=== PATIENT | male | born 1950 | race Caucasian/White ===

== ENCOUNTER → 2016-07-26 | Outpatient (CLI) | payer OTHER ==
[~2016-07-26] MED LIST: ACET-1311 PO; BISA10SU38 PR; CLIN300C2 PO; CRG3125 PO; FLV1 PO; LIDO5DIS10 TOP; MAGN400T6 PO; NRN100 PO; NUTR-1048 PO; OXY/15 PO; OXYC1TAB3 PO; PANT40TA PO; PROTEIN POWDER PO; SIMV20TA2 PO; WARF10TA PO; ZNTT/150 PO
== END | disposition home or self-care (01) ==
LOC: C.LABSPEC 15:42
PROVIDERS: ATTEND Internal Medicine
DX: M79.675 Pain in left toe(s) (principal)

== ENCOUNTER → 2017-02-21 | Outpatient (CLI) | payer OTHER ==
[2017-02-21 10:12] LABS: PROTHROMBIN TIME (PATIENT) 10.8 SECONDS (9.0-12.0)
== END | disposition home or self-care (01) ==
LOC: C.LABSPEC 09:24
PROVIDERS: ATTEND Internal Medicine
DX: I48.91 Unspecified atrial fibrillation (principal)

== ENCOUNTER → 2017-02-28 | Outpatient (CLI) | payer OTHER ==
[2017-02-28 09:14] LABS: INR 1.4 (0.9-1.1)
--- NOTE | 2017-03-09 09:24 | CODING QUERY NO DIAGNOSIS ---
TREATMENT RENDERED WITHOUT A DIAGNOSIS : 54 To promote full compliance with coding requirements relating to patient care, physician participation is requested in all cases of kiln door repairer uncertainty. Please assist us with providing a diagnosis/symptom for the test(s) below: A diagnosis/symptom was not documented on your Order. A valid diagnosis/symptom is required to bill all insurances. Please remember that we are unable to code a diagnosis of rule out, probable, possible, questionable, or suspected. Tests that require a diagnosis: DOS: 02/28/17 * PROTHROMBIN TIME PRO DIAGNOSIS: Provider Signature: Date: Thank you Neena Lacey Health Information Management Once completed, please kindly fax back to [phone] For questions please call [phone]
== END | disposition home or self-care (01) ==
LOC: C.LABSPEC 08:46
PROVIDERS: ATTEND Internal Medicine
DX: I48.91 Unspecified atrial fibrillation (principal)

== ENCOUNTER → 2017-03-02 | Outpatient (CLI) | payer OTHER ==
[~2017-03-02] MED LIST changes: +ACET-1693 PO; +CALC667C4 PO; +CARV3.122 PO; +CMD25 PO; +CMD75 PO; +FERR1TAB13 PO; +LEVO-17 PO; +LIDO1CRE16 TOP; +MENTOIN TD; +MRLP17 PO; +OXYC-90 PO; -OXYC1TAB3 PO; +RANI150T85 PO; +SENN-61 PO; +SKIN120C TD; -ZNTT/150 PO; +[UNRECOGNIZED DRUG - OTHER] PO
[2017-03-02 08:56] LABS: INR 1.4 (0.9-1.1)
== END | disposition home or self-care (01) ==
LOC: C.LABSPEC 08:29
PROVIDERS: ATTEND Internal Medicine
DX: I48.91 Unspecified atrial fibrillation (principal); I49.5 Sick sinus syndrome

== ENCOUNTER → 2017-03-06 | Outpatient (CLI) | payer OTHER ==
[2017-03-06 10:12] LABS: INR 1.6 (0.9-1.1)
== END | disposition home or self-care (01) ==
LOC: C.LABSPEC 09:08
PROVIDERS: ATTEND Nurse Practitioner Adult Health
DX: I48.91 Unspecified atrial fibrillation (principal)

== ENCOUNTER → 2017-03-08 | Outpatient (CLI) | payer OTHER ==
[2017-03-08 08:42] LABS: INR 1.9 (0.9-1.1)
== END | disposition home or self-care (01) ==
LOC: C.LABSPEC 07:44
PROVIDERS: ATTEND Nurse Practitioner Adult Health
DX: Z51.81 Encounter for therapeutic drug level monitoring (principal); Z79.01 Long term (current) use of anticoagulants

== ENCOUNTER → 2017-03-14 | Outpatient (CLI) | payer OTHER ==
[~2017-03-14] MED LIST changes: -ACET-1693 PO; -CALC667C4 PO; -CARV3.122 PO; -CMD25 PO; -CMD75 PO; -FERR1TAB13 PO; -LEVO-17 PO; -LIDO1CRE16 TOP; -MENTOIN TD; -MRLP17 PO; -OXYC-90 PO; +OXYC1TAB3 PO; -RANI150T85 PO; -SENN-61 PO; -SKIN120C TD; +ZNTT/150 PO; -[UNRECOGNIZED DRUG - OTHER] PO
[2017-03-14 08:57] LABS: INR 2.2 (0.9-1.1)
--- NOTE | 2017-03-16 09:39 | CODING QUERY NO DIAGNOSIS ---
: 1950 TREATMENT RENDERED WITHOUT A DIAGNOSIS To promote full compliance with coding requirements relating to patient care, physician participation is requested in all cases of customer logistics manager uncertainty. Please assist us with providing a diagnosis/symptom for the test(s) below: A diagnosis/symptom was not documented on your Order. A valid diagnosis/symptom is required to bill all insurances. Please remember that we are unable to code a diagnosis of rule out, probable, possible, questionable, or suspected. Tests that require a diagnosis: DOS: 03/14/17 * PROTHROMBIN TIME PROFILE DIAGNOSIS: Provider Signature: Date: Thank you Cora Quick Health Information Management Once completed, please kindly fax back to [phone] For questions please call [phone]
== END | disposition home or self-care (01) ==
LOC: C.LABSPEC 08:11
PROVIDERS: ATTEND Nurse Practitioner Adult Health
DX: I48.2 Chronic atrial fibrillation (principal)

== ENCOUNTER → 2017-03-21 | Outpatient (CLI) | payer OTHER ==
[2017-03-21 09:53] LABS: INR 2.3 (0.9-1.1)
== END | disposition home or self-care (01) ==
LOC: C.LABSPEC 08:12
PROVIDERS: ATTEND Internal Medicine
DX: I48.91 Unspecified atrial fibrillation (principal)

== ENCOUNTER → 2017-03-28 | Outpatient (CLI) | payer OTHER ==
[2017-03-28 10:25] LABS: INR 2.1 (0.9-1.1)
--- NOTE | 2017-03-29 14:26 | CODING QUERY NO DIAGNOSIS ---
: 1950 TREATMENT RENDERED WITHOUT A DIAGNOSIS To promote full compliance with coding requirements relating to patient care, physician participation is requested in all cases of hris manager uncertainty. Please assist us with providing a diagnosis/symptom for the test(s) below: A diagnosis/symptom was not documented on your Order. A valid diagnosis/symptom is required to bill all insurances. Please remember that we are unable to code a diagnosis of rule out, probable, possible, questionable, or suspected. Tests that require a diagnosis: DOS: 03/28/17 * PROTHROMBIN TIME PROFILE DIAGNOSIS: Provider Signature: Date: Thank you Cora Quick Health Information Management Once completed, please kindly fax back to [phone] For questions please call [phone]
== END | disposition home or self-care (01) ==
LOC: C.LABSPEC 09:00
PROVIDERS: ATTEND Internal Medicine
DX: I48.2 Chronic atrial fibrillation (principal)

== ENCOUNTER → 2017-04-11 | Outpatient (CLI) | payer OTHER ==
[~2017-04-11] MED LIST changes: +ACET-1693 PO; +CALC667C4 PO; +CARV3.122 PO; +CMD25 PO; +CMD75 PO; +FERR1TAB13 PO; +LEVO-17 PO; +LIDO1CRE16 TOP; +MENTOIN TD; +RANI150T85 PO; +SKIN120C TD; -ZNTT/150 PO; +[UNRECOGNIZED DRUG - OTHER] PO
[2017-04-11 08:50] LABS: INR 2.5 (0.9-1.1)
--- NOTE | 2017-04-19 15:24 | CODING QUERY NO DIAGNOSIS ---
: 1950 Valid Physician Order Needed A valid physician order must be submitted in order to properly bill for the service(s) provided, including date of service(s), valid diagnosis, and physician signature. If these tests are done on a recurring basis the original physician order must be submitted in order to code and bill for the service(s) provided. Please fax us the original, signed physician order so that we may expedite billing to [phone] DOS 04/11/2017 * Prothrombin Time DX: 427.31, I48.91 (No physician signature on lab services requisition) Thank you Simi Cleary [employer] Information Management
== END ==
LOC: C.LABSPEC 08:04
PROVIDERS: ATTEND Nurse Practitioner Adult Health
DX: I48.91 Unspecified atrial fibrillation (principal)

== ENCOUNTER → 2017-04-18 | Outpatient (CLI) | payer OTHER ==
[~2017-04-18] MED LIST changes: -ACET-1693 PO; -CALC667C4 PO; -CARV3.122 PO; -CMD25 PO; -CMD75 PO; -FERR1TAB13 PO; -LEVO-17 PO; -LIDO1CRE16 TOP; -MENTOIN TD; -SKIN120C TD; -[UNRECOGNIZED DRUG - OTHER] PO
[2017-04-18 10:18] LABS: INR 1.9 (0.9-1.1)
== END | disposition home or self-care (01) ==
LOC: C.LABSPEC 09:54
PROVIDERS: ATTEND Nurse Practitioner Adult Health
DX: Z51.81 Encounter for therapeutic drug level monitoring (principal); Z79.01 Long term (current) use of anticoagulants; I48.91 Unspecified atrial fibrillation

== ENCOUNTER → 2017-05-09 | Outpatient (CLI) | payer OTHER ==
[~2017-05-09] MED LIST changes: +ACET-1693 PO; +CALC667C4 PO; +CARV3.122 PO; +CMD25 PO; +CMD75 PO; +FERR1TAB13 PO; +LEVO-17 PO; +LIDO1CRE16 TOP; +MENTOIN TD; +MRLP17 PO; +SENN-61 PO; +SKIN120C TD; +[UNRECOGNIZED DRUG - OTHER] PO
[2017-05-09 09:06] LABS: INR 2.5 (0.9-1.1)
== END | disposition home or self-care (01) ==
LOC: C.LABSPEC 08:32
PROVIDERS: ATTEND Internal Medicine
DX: I48.91 Unspecified atrial fibrillation (principal)

== ENCOUNTER 2017-05-10 05:06 | Inpatient (IN) | payer OTHER ==
[~2017-05-10] VITALS: Ht 185.4 cm; Wt 140.2 kg
[~2017-05-10 05:06] MED LIST changes: -ACET-1693 PO; -CALC667C4 PO; -CARV3.122 PO; -CMD25 PO; -CMD75 PO; -FERR1TAB13 PO; -LEVO-17 PO; -LIDO1CRE16 TOP; -MENTOIN TD; -MRLP17 PO; -SENN-61 PO; -SKIN120C TD; -[UNRECOGNIZED DRUG - OTHER] PO
[2017-05-10] MEDS ORDERED: CMD75 PO (05:20)
[2017-05-10] MEDS ORDERED: CMD25 PO (05:24)
[2017-05-10] MEDS ORDERED: CARV3.122 PO ×2 (05:40→05:44)
[2017-05-10 05:42] LABS: BASO % 0.2 %; BASO ABS # 0.01 K/uL (0-0.2); EOS % 3.4 %; EOS ABS # 0.19 K/uL (0-0.5); HEMATOCRIT 39.6 % (42-52); HEMOGLOBIN 13.1 g/dL (14.0-18.0); IG# 0.01 K/uL (0.00-0.02); LYMPH % 14.9 %; LYMPH ABS # 0.84 K/uL (1.2-3.4); MEAN CELL VOLUME 90.2 fL (80-100); MEAN CORPUSCULAR HEMOGLOBIN 29.8 pg (25-34); MEAN CORPUSCULAR HGB CONC 33.1 g/dl (32-36); MEAN PLATELET VOLUME 9.2 fL (7.4-10.4); MONO % 13.8 %; MONO ABS # 0.78 K/uL (0.11-0.59); NEUT % 67.5 %; NEUT ABS # 3.82 K/uL (1.4-6.5); PLATELET COUNT 166 K/uL (130-400); RED CELL DISTRIBUTION WIDTH CV 15.4 % (11.5-14.5); RED CELL DISTRIBUTION WIDTH SD 50.7 fL (36.4-46.3); WHITE BLOOD COUNT 5.65 K/uL (4.8-10.8)
[2017-05-10] MEDS ORDERED: SKIN120C TD (05:50)
[2017-05-10] MEDS ORDERED: MENTOIN TD (05:52)
[2017-05-10 05:53] LABS: INR 2.7 (0.9-1.1); PTT PATIENT 43.6 SECONDS (21.0-31.0)
[2017-05-10] MEDS ORDERED: LIDO1CRE16 TOP (05:53)
[2017-05-10 05:54] LABS: ALBUMIN 3.5 gm/dl (3.4-5.0); CALCIUM 8.9 mg/dl (8.5-10.1); CREATININE 3.99 mg/dl (0.60-1.40); POTASSIUM 2.6 mmol/L (3.5-5.1)
[2017-05-10 05:56] LABS: TOTAL PROTEIN 7.9 gm/dl (6.4-8.2)
[2017-05-10] MEDS ORDERED: CALC667C4 PO (05:57)
[2017-05-10] MEDS ORDERED: LEVO-17 PO (05:59)
[2017-05-10] MEDS ORDERED: POTASSIUM CHLORIDE 10 MEQ TABCR PO STA (06:02)
[2017-05-10] MEDS ORDERED: FERR1TAB13 PO (06:04)
[2017-05-10] MEDS ORDERED: ACET-1693 PO (06:12)
[2017-05-10] MEDS ORDERED: [UNRECOGNIZED DRUG - OTHER] PO (06:15)
[2017-05-10 06:40] LABS: ISTAT CREATININE 4.1 mg/dl (0.6-1.3); ISTAT IONIZED CALCIUM 1.15 mmol/l (1.12-1.32); ISTAT POTASSIUM 2.6 mEq/L (3.3-5.0)
[2017-05-10] MEDS ORDERED: CIPROFLOXACIN 400MG / 200ML D5W IV STA (07:23)
[2017-05-10] MEDS ORDERED: METRONIDAZOLE 500MG / 100ML NSS IV STA (07:23)
--- NOTE | 2017-05-10 07:30 | DIAGNOSTIC IMAGING REPORT ---
ABDOMEN AND PELVIS CT WITHOUT CONTRAST CT DOSE: 3718.40 mGy.cm HISTORY: Lower abdominal pain. TECHNIQUE: Multiaxial CT images of the abdomen and pelvis were performed without contrast. A dose lowering technique was utilized adhering to the principles of ALARA. COMPARISON STUDY: Abdomen and pelvis CT 12/22/2014. FINDINGS: The lung bases are essentially clear. No pneumoperitoneum. No pneumatosis. Mild sclerosis of the bilateral femoral heads. This could represent avascular necrosis. Evidence for prior posterior decompression from L3 through L5. No significant change in the destructive process at the L2-L3 disc space. Slight increase in the 8 mm of retrolisthesis of L2 on L3. This results in moderate to severe central canal narrowing at this level. This is relatively stable dating back to the 07/13/2015 lumbar spine MRI. Cholelithiasis. The unenhanced liver, spleen, adrenal glands, and pancreas are unremarkable. No retroperitoneal lymphadenopathy. Normal bladder. Distended gas and stool-filled colon. This most pronounced at the sigmoid colon which measures 10 cm in diameter. Normal appendix. The small bowel is normal in course and caliber. Focal area of inflammatory change seen within the left anterior abdomen. This is best seen on image 289. A few scattered colonic diverticula. IMPRESSION: 1. Focal area of inflammatory change seen within the left anterior abdomen. This favors an omental infarct or epiploic appendagitis. However, a diverticulitis could also have a similar appearance. 2. Distended gas and stool-filled colon. This favors an ileus. No evidence for bowel obstruction. 3. Cholelithiasis. 4. Chronic destructive change at the L2-L3 disc space level. This favors a chronic discitis/osteomyelitis. Electronically signed by: Mauri Rojas M.D. 05/10/2017 7:28 AM Dictated Date/Time: 05/10/2017 7:18 AM
--- NOTE | 2017-05-10 07:31 | EMERGENCY ROOM VISIT NOTE ---
ED Visit Note First contact with patient: 05:09 I have personally evaluated and examined this patient. I agree with assessment and plan of Tonya De Leon PA-C.
[2017-05-10 07:33] VITALS: O2SAT 90; Ht 185.4 cm; Wt 140.2 kg
[2017-05-10] MEDS ORDERED: ACETAMINOPHEN 325 MG TAB PO PRN (08:45)
--- NOTE | 2017-05-10 08:57 | History and Physical ---
History & Physical Date & Time of Service: May 10, 2017 at 08:52 Chief Complaint: Abd Pain Primary Care Physician: Suresh Cline D.O. History of Present Illness Source: patient This is a 66 year old Male who resides in [facility] on dialysis M/W/F, history of atrial fibrillation on coumadin, history of back surgery with subsequent complications and left leg immobility, ambulates with wheelchair, morbid obesity, who reports bloating x 3 nights and chronic diarrhea. Patient denies recent antibiotic use. Denies vomiting or fever. Patient makes urine and denies urinary symptoms. Reports that he is not really passing gas but is make bowel movements as diarrhea. Also having left sided abdominal tenderness with the bloating sensation x [address] abdomen results concerning for abdominal bowel distention (dilated colon vs diverticulitis). Patient was ordered Ciprofloxacin and Metronidazole in the ED and GI consult pending with admission to hospitalist medicine service. Family History Diabetes mellitus MOTHER FH: lung disease FATHER Social History Smoking Status: Never Smoker Drug Use: none Marital Status: single Housing status: lives alone, intermediate Occupational Status: disabled Immunizations History of Influenza Vaccine: Yes History of Tetanus Vaccine?: Yes History of Pneumococcal: Yes History of Hepatitis B Vaccine: No Allergies Coded Allergies: No Known Allergies (Verified , 11/30/15) Home Medications Scheduled Acetaminophen (Tylenol), 650 MG PO DAILY Calcium Acetate (Phoslo 667 Mg), 2 CAPSULES PO WM Carvedilol (Coreg), 0.5 TAB PO BID 4XWEEKLY Carvedilol (Coreg), 0.5 TAB PO DAILY 3XWEEKLY Clindamycin Hcl (Cleocin), 300 MG PO DAILY Ferrous Sulfate (Kp Ferrous Sulfate), 325 MG PO DAILY Folic Acid (Folic Acid), 1 MG PO QAM Gabapentin (Gabapentin), 200 MG PO BID Levofloxacin (Levaquin), 250 MG PO Q2D Lidocaine-Prilocaine (Lidocaine/Prilocaine), 1 APPLN TOP UD Magnesium Oxide (Mag-Ox), 400 MG PO QAM Menthol-Zinc Oxide (Calmoseptine), 1 APPLN TD TID Oxycodone Hcl (Oxycodone Hcl), 15 MG PO QAM Oxycodone Ir (Roxicodone Ir), 5 MG PO 3XWK Pantoprazole (Protonix), 40 MG PO BID Ranitidine (Zantac), 150 MG PO QPM Simvastatin (Zocor), 20 MG PO QPM Skin Protectants, Misc. (Hydrocerin), 1 APPLN TD DAILY Warfarin Sod (Coumadin), 7.5 MG PO DAILY Warfarin Sod (Coumadin), 2.5 MG PO 3XWK [Antacid With Simethi], Unknown Dose PO UD Scheduled PRN Acetaminophen Tab (Tylenol), 650 MG PO Q4H PRN for Pain or Fever Review of Systems Constitutional: No fever Eyes: No worsening of vision ENT: No hearing loss Respiratory: No cough, No sputum, No wheezing, No shortness of breath, No dyspnea on exertion Cardiovascular: No chest pain Abdomen: + pain, + diarrhea, No vomiting Musculoskeletal: No joint pain Genitourinary - Male: No dysuria Neurologic: + weakness (left leg immobility) Psychiatric: No substance abuse Endocrine: No fatigue Hematologic / Lymphatic: No abnormal bleeding/bruising Integumentary: No rash Physical Exam Vital Signs Date Time Temp Pulse Resp B/P (MAP) Pulse Ox O2 Delivery O2 Flow Rate FiO2 05/10/17 07:44 93 24 155/77 90 Room Air 05/10/17 07:33 90 Room Air 05/10/17 05:55 95 18 128/53 93 Room Air 05/10/17 05:31 99 05/10/17 05:16 93 Room Air 05/10/17 05:16 36.6 93 22 160/88 94 Room Air General Appearance: no apparent distress Head: normocephalic, atraumatic Eyes: normal inspection, EOMI, sclerae normal ENT: normal ENT inspection, hearing grossly normal, pharynx normal Neck: supple, thyroid normal, no JVD, trachea midline Respiratory/Chest: chest non-tender, lungs clear, normal breath sounds, no respiratory distress, no accessory muscle use Cardiovascular: regular rate, rhythm, no edema, no JVD, no murmur Abdomen/GI: normal bowel sounds, + pertinent finding (truncal obesity, distended, abdominal tenderness left of epigastrum, bowel sounds audible) Back: normal inspection, no muscle spasm Extremities/Musculoskelatal: normal inspection, no calf tenderness, no pedal edema, non-tender, + pertinent finding (patient cannot move left leg) Neurologic/Psych: alert, oriented x 3 (patient cannot move left leg), + pertinent finding Skin: normal color, warm/dry, no rash Diagnostics Laboratory Results Results Past 24 Hours Test 05/10/17 05:10 05/10/17 05:20 05/10/17 05:28 Range/Units White Blood Count 5.65 4.8-10.8 K/uL Red Blood Count 4.39 4.7-6.1 M/uL Hemoglobin 13.1 14.0-18.0 g/dL Hematocrit 39.6 42-52 % Mean Corpuscular Volume 90.2 80-100 fL Mean Corpuscular Hemoglobin 29.8 25-34 pg Mean Corpuscular Hemoglobin Concent 33.1 32-36 g/dl Platelet Count 166 130-400 K/uL Mean Platelet Volume 9.2 7.4-10.4 fL Neutrophils (%) (Auto) 67.5 % Lymphocytes (%) (Auto) 14.9 % Monocytes (%) (Auto) 13.8 % Eosinophils (%) (Auto) 3.4 % Basophils (%) (Auto) 0.2 % Neutrophils # (Auto) 3.82 1.4-6.5 K/uL Lymphocytes # (Auto) 0.84 1.2-3.4 K/uL Monocytes # (Auto) 0.78 0.11-0.59 K/uL Eosinophils # (Auto) 0.19 0-0.5 K/uL Basophils # (Auto) 0.01 0-0.2 K/uL RDW Standard Deviation 50.7 36.4-46.3 fL RDW Coefficient of Variation 15.4 11.5-14.5 % Immature Granulocyte % (Auto) 0.2 % Immature Granulocyte # (Auto) 0.01 0.00-0.02 K/uL Prothrombin Time 27.5 9.0-12.0 SECONDS Prothromb Time International Ratio 2.7 0.9-1.1 Activated Partial Thromboplast Time 43.6 21.0-31.0 SECONDS Partial Thromboplastin Ratio 1.7 Sodium Level 136 136-145 mmol/L Potassium Level 2.6 3.5-5.1 mmol/L Chloride Level 98 98-107 mmol/L Carbon Dioxide Level 29 21-32 mmol/L Anion Gap 9.0 18.0 16-25 mmol/L Blood Urea Nitrogen 46 7-18 mg/dl Creatinine 3.99 0.60-1.40 mg/dl Est Creatinine Clear Calc Drug Dose 28.3 ml/min Estimated GFR () 17.2 Estimated GFR (Non- 14.9 BUN/Creatinine Ratio 11.5 10-20 Random Glucose 112 70-99 mg/dl Calcium Level 8.9 8.5-10.1 mg/dl Magnesium Level 2.3 1.8-2.4 mg/dl Total Bilirubin 0.6 0.2-1 mg/dl Direct Bilirubin 0.1 0-0.2 mg/dl Aspartate Amino Transf (AST/SGOT) 13 15-37 U/L Alanine Aminotransferase (ALT/SGPT) 16 12-78 U/L Alkaline Phosphatase 87 45-117 U/L Total Protein 7.9 6.4-8.2 gm/dl Albumin 3.5 3.4-5.0 gm/dl Lipase 250 73-393 U/L Bedside Hemoglobin 14.3 14.0-18.0 g/dl Bedside Hematocrit 42 42-52 % Bedside Sodium 138 135-144 mEq/L Bedside Potassium 2.6 3.3-5.0 mEq/L Bedside Chloride 95 101-112 mEq/L Bedside Total CO2 29 24-31 mEq/l Bedside Blood Urea Nitrogen 43 7-18 mg/dl Bedside Creatinine 4.1 0.6-1.3 mg/dl Bedside Glucose (other) 112 70-99 mg/dl Bedside Ionized Calcium (Karen) 1.15 1.12-1.32 mmol/l Impression Assessment and Plan The lung bases are essentially clear. No pneumoperitoneum. No pneumatosis. Mild sclerosis of the bilateral femoral heads. This could represent avascular necrosis. Evidence for prior posterior decompression from L3 through L5. No significant change in the destructive process at the L2-L3 disc space. Slight increase in the 8 mm of retrolisthesis of L2 on L3. This results in moderate to severe central canal narrowing at this level. This is relatively stable dating back to the 07/13/2015 lumbar spine MRI. Cholelithiasis. The unenhanced liver, spleen, adrenal glands, and pancreas are unremarkable. No retroperitoneal lymphadenopathy. Normal bladder. Distended gas and stool-filled colon. This most pronounced at the sigmoid colon which measures 10 cm in diameter. Normal appendix. The small bowel is normal in course and caliber. Focal area of inflammatory change seen within the left anterior abdomen. This is best seen on image 289. A few scattered colonic diverticula. IMPRESSION: 1. Focal area of inflammatory change seen within the left anterior abdomen. This favors an omental infarct or epiploic appendagitis. However, a diverticulitis could also have a similar appearance. 2. Distended gas and stool-filled colon. This favors an ileus. No evidence for bowel obstruction. 3. Cholelithiasis. 4. Chronic destructive change at the L2-L3 disc space level. This favors a chronic discitis/osteomyelitis. GI consult was requested in the ED for further evaluation as exam and history seem consistent with dilated colon with possible diverticulitis Patient has been ordered IV Ciprofloxacin 400 mg x 1 in the ED and IV Metronidazole 500 mg x 1 in the ED Hospitalist medicine will appreciate further GI recommendations before further antibiotics to be given. Patient reports chronic diarrhea. C.diff test is to be sent. Blood cultures to be collected NPO for now in case GI procedure needed DVT ppx - patient is anticoagulated on warfarin for history of atrial fibrillation, INR is 2.7 on admission, continue Coumadin for now Continue Coumadin and low dose carvedilol for history of atrial fibrillation Chronic destructive change at the L2-L3 disc space level: chronic discitis/ osteomyelitis as per radiology read. patient does report history of spinal surgery in the past but resulting complications led to the hardware removed and subsequently with left leg immobility; check blood cultures Minimize pain medication narcotics to avoid further ileus or dilation of bowels Minimize oral medications for now - hold iron, simvastatin Morbid Obesity with BMI 43 ESRD on dialysis M/W/F through left arm fistula, nephrology consult for dialysis , continue calcium acetate Hypokalemia likely from recent dialysis and diarrhea. admission serum potassium 2.7. will give additional IV potassium. aware that serum potassium will naturally accumulate given ESRD but a serum potassium below 3 is too low. Will recheck potassium levels after supplementations Urination: patient reports urination despite being on dialysis, denies recent urinary symptoms Patient denies history of diabetes but this has been listed as problem list on outpatient records - is not on medications for diabetes, check HbA1c FULL Code Status sister Keely [phone] Advanced Directives Existing Living Will: Yes Existing Power of Consumer Loan Manager: Yes Resuscitation Status VTE Prophylaxis Will order VTE Prophylaxis: Yes
[2017-05-10] MEDS ORDERED: CARVEDILOL 3.125 MG TAB PO SCH (09:00)
[2017-05-10 09:15] VITALS: BP 111/75; PULSE 81; TEMP 36.7; O2SAT 93
[2017-05-10] MEDS ORDERED: PNEUMOCOCCAL ADMINISTRATION CHARGE ONE (10:00)
[2017-05-10] MEDS ORDERED: PNEUMOCOCCAL POLYSACCHARIDES 25 MCG/0.5 ML VIAL/SYR IM. ONE (10:00)
[2017-05-10 10:02] LABS: HEMOGLOBIN A1C 5.8 % (4.5-5.6)
[2017-05-10] MEDS: POTASSIUM CHLR 10 MEQ / WTR 10 MEQ in PREMIXED WATER 100 ML IV SCH ×2 (10:30→12:10)
[2017-05-10] MEDS: CALCIUM ACETATE 667MG GELCAP PO SCH ×3 (10:35→21:16)
[2017-05-10] MEDS: CARVEDILOL 3.125 MG TAB PO SCH ×2 (12:10→21:16)
--- NOTE | 2017-05-10 12:31 | Gastrointestinal Consultation ---
Gastrointestinal Consultation Date of Consultation: May 10, 2017 Attending Physician: Chepe Consulting Physician: Denice Reason for Consultation: abd distention, abd pain, diarrhea History of Present Illness Patient is a 66 year old male w/ history of T2DM, CKD on dialysis MWF, hx of back surgery w/ complicated post operative period now wheelchair bound w/ others listed below who presented to the ED from [facility] for evaluation of abdominal pain and bloating x 3 days. GI was asked to evaluate the pt, pt was seen and evaluated, chart reviewed. Pt notes that he was in his typical state of health up until 3 days ago. He notes that he has chronic bowel issues. Suggesting that he is unable to pass any stool while he is awake as he does not have the urge to but does pass gas. He normally has 1-2 episodes of incontinence (liquidy stools while he is asleep) No black or bloody stools. This has been his "normal" for quite some time. Notes over the past three days has not been passing gas and has been feeling bloating w/ abdominal pain L>R. Pain is intermittent, explained as a dull deep pain, worse with coughing. Unchanged by PO intake. Unchanged by BM. Continues to be incontinent of 1-2 liquid stools at night. No black or bloody stools. Is not passing gas. No UGI symptoms. Is tolerating diet. No nausea, vomiting. Denies fever, chills, CP, SOB. No weight loss, is up [address] ABD/Pelvis 05/10/17: Focal area of inflammatory change seen within the left anterior abdomen. This favors an omental infarct or epiploic appendagitis. However, a diverticulitis could also have a similar appearance. Distended gas and stool-filled colon. This favors an ileus. No evidence for bowel obstruction. Cholelithiasis. Chronic destructive change at the L2-L3 disc space level. This favors a chronic discitis/osteomyelitis. EGD 11/30/15: Normal esophagus. Normal stomach. Normal examined duodenum. No specimens collected Colonoscopy 08/10/10: The entire examined colon is normal. Past Medical/Surgical History Medical Problems: (1) Intractable low back pain Status: Acute (2) Lumbar disc disease Status: Acute (3) Osteomyelitis of lumbar spine Status: Acute Past Medical History: T2DM, dyslipidemia, hx PE, HTN, diastolic HF, Afib, CKD on dialysis MWF, anemia Past Surgical History: appendectomy EGD x 2 Colonoscopy laminectomy and laminotomy Family History Diabetes mellitus MOTHER FH: lung disease FATHER Social History Smoking Status: Never Smoker Alcohol Use: none Drug Use: none Marital Status: single Housing Status: lives alone Occupation Status: disabled Allergies Coded Allergies: No Known Allergies (Verified , 11/30/15) Current Medications Home Meds and Scripts Medications Dose Route/Sig Max Daily Dose Days Date Category Dose Instructions [Antacid With Simethi] Unknown Strength Unknown Dose PO UD 05/10/17 Reported Tylenol (Acetaminophen) 325 Mg Tab 650 Mg PO Q4H PRN 05/10/17 Reported MAX APAP/24HRS = 3GM Kp Ferrous Sulfate (Ferrous Sulfate) 325 Mg Tab 325 Mg PO DAILY 05/10/17 Reported Levaquin (Levofloxacin) 250 Mg Tab 250 Mg PO Q2D 05/10/17 Reported Phoslo 667 Mg (Calcium Acetate) 667 Mg Cap 2 Capsules PO WM 05/10/17 Reported Lidocaine/Prilocaine (Lidocaine-Prilocaine) 1 Cre Cre 1 Appln TOP UD 05/10/17 Reported LIBERAL AMOUNT APPLIED 1 HOUR PRIOR TO DIALYSIS,TOPICALLY OVER DIALYSIS ACCESS. ONCE EVERY SUNDAY/SUNDAY/SUNDAY. Calmoseptine (Menthol-Zinc Oxide) 1 Oin Oin 1 Appln TD TID 05/10/17 Reported Hydrocerin (Skin Protectants, Misc.) 1 Cre Cre 1 Appln TD DAILY 05/10/17 Reported Coreg (Carvedilol) 3.125 Mg Tab 0.5 Tab PO DAILY 3XWEEKLY 05/10/17 Reported TAKE 1/2 TABLET DAILY EVERY SUNDAY/SUNDAY/SUNDAY. Coreg (Carvedilol) 3.125 Mg Tab 0.5 Tab PO BID 4XWEEKLY 05/10/17 Reported TAKE 1/2 TABLET TWICE EVERY SUNDAY/SUNDAY/SUNDAY/ SUNDAY. Coumadin (Warfarin Sod) 2.5 Mg Tab 2.5 Mg PO 3XWK 05/10/17 Reported TAKE WITH 7.5MG EVERY SUNDAY/SUNDAY/SUNDAY = 10MG 3X WEEKLY Coumadin (Warfarin Sod) 7.5 Mg Tab 7.5 Mg PO DAILY 05/10/17 Reported TAKE WITH 2.5MG EVERY SUNDAY/SUNDAY/SUNDAY = 10MG 3 X WEEKLY. Zantac (Ranitidine HCl) 150 Mg Tab 150 Mg PO QPM 11/24/15 Reported Tylenol (Acetaminophen) 325 Mg Tab 650 Mg PO DAILY 09/15/15 Reported MAX APAP/24HRS = 3GMS Gabapentin 100 Mg Cap 200 Mg PO BID 09/15/15 Reported Zocor (Simvastatin) 20 Mg Tab 20 Mg PO QPM 09/15/15 Reported Protonix (Pantoprazole Sodium) 40 Mg Tab 40 Mg PO BID 09/15/15 Reported Roxicodone Ir (Oxycodone HCl) 5 Mg Tab 5 Mg PO 3XWK 09/15/15 Reported DAILY EVERY SUNDAY/SUNDAY/SUNDAY AFTER RETURNING FROM DIALYSIS. Oxycodone Hcl 15 Mg Tab 15 Mg PO QAM 09/15/15 Reported Mag-Ox (Magnesium Oxide) 400 Mg Tab 400 Mg PO QAM 09/15/15 Reported Cleocin (Clindamycin Hcl) 300 Mg Cap 300 Mg PO DAILY 09/15/15 Reported Folic Acid 1 Mg Tab 1 Mg PO QAM 05/12/14 Reported Review of Systems Constitutional: + weakness, No fever, No chills, No sweats, No weight loss ENT: No hearing loss, No trouble swallowing, No pain on swallowing Respiratory: No cough, No shortness of breath Cardiac: + edema (chronic and unchanged), No chest pain Abdomen: + pain, + diarrhea, No nausea, No vomiting, No constipation, No GI bleeding, No dysphagia, No odynophagia Skin: No rash, No itch, No color change, No jaundice Physical Exam Date Time Temp Pulse Resp B/P (MAP) Pulse Ox O2 Delivery O2 Flow Rate FiO2 05/10/17 09:15 36.7 81 17 111/75 (87) 93 Room Air 05/10/17 09:04 91 20 110/73 92 05/10/17 07:44 93 24 155/77 90 Room Air 05/10/17 07:33 90 Room Air 05/10/17 05:55 95 18 128/53 93 Room Air 05/10/17 05:31 99 05/10/17 05:16 93 Room Air 05/10/17 05:16 36.6 93 22 160/88 94 Room Air General Appearance: no apparent distress (pt is resting in bed, is quite talkative during exam) Eyes: PERRL ENT: hearing grossly normal Neck: supple, trachea midline Respiratory/Chest: lungs clear, normal breath sounds, no accessory muscle use Cardiovascular: regular rate, rhythm, no JVD Abdomen: normal bowel sounds, no organomegaly, no pulsatile mass, + distended ( mild distention), + tenderness (generalized tenderness, mild distention) Extremities: + pedal edema (bilateral lower extremity edema w/ venous stasis change) Neurologic/Psych: alert, normal mood/affect, oriented x 3 Skin: normal color, no jaundice, warm/dry, no rash Laboratory Results Last 24 Hours Test 05/10/17 05:20 05/10/17 05:28 White Blood Count 5.65 K/uL Red Blood Count 4.39 M/uL Hemoglobin 13.1 g/dL Hematocrit 39.6 % Mean Corpuscular Volume 90.2 fL Mean Corpuscular Hemoglobin 29.8 pg Mean Corpuscular Hemoglobin Concent 33.1 g/dl Platelet Count 166 K/uL Mean Platelet Volume 9.2 fL Neutrophils (%) (Auto) 67.5 % Lymphocytes (%) (Auto) 14.9 % Monocytes (%) (Auto) 13.8 % Eosinophils (%) (Auto) 3.4 % Basophils (%) (Auto) 0.2 % Neutrophils # (Auto) 3.82 K/uL Lymphocytes # (Auto) 0.84 K/uL Monocytes # (Auto) 0.78 K/uL Eosinophils # (Auto) 0.19 K/uL Basophils # (Auto) 0.01 K/uL RDW Standard Deviation 50.7 fL RDW Coefficient of Variation 15.4 % Immature Granulocyte % (Auto) 0.2 % Immature Granulocyte # (Auto) 0.01 K/uL Prothrombin Time 27.5 SECONDS Prothromb Time International Ratio 2.7 Activated Partial Thromboplast Time 43.6 SECONDS Partial Thromboplastin Ratio 1.7 Sodium Level 136 mmol/L Potassium Level 2.6 mmol/L Chloride Level 98 mmol/L Carbon Dioxide Level 29 mmol/L Anion Gap 9.0 mmol/L 18.0 mmol/L Blood Urea Nitrogen 46 mg/dl Creatinine 3.99 mg/dl Est Creatinine Clear Calc Drug Dose 28.3 ml/min Estimated GFR () 17.2 Estimated GFR (Non- 14.9 BUN/Creatinine Ratio 11.5 Random Glucose 112 mg/dl Estimated Average Glucose 120 mg/dl Hemoglobin A1c 5.8 % Calcium Level 8.9 mg/dl Magnesium Level 2.3 mg/dl Total Bilirubin 0.6 mg/dl Direct Bilirubin 0.1 mg/dl Aspartate Amino Transf (AST/SGOT) 13 U/L Alanine Aminotransferase (ALT/SGPT) 16 U/L Alkaline Phosphatase 87 U/L Total Protein 7.9 gm/dl Albumin 3.5 gm/dl Lipase 250 U/L Bedside Hemoglobin 14.3 g/dl Bedside Hematocrit 42 % Bedside Sodium 138 mEq/L Bedside Potassium 2.6 mEq/L Bedside Chloride 95 mEq/L Bedside Total CO2 29 mEq/l Bedside Blood Urea Nitrogen 43 mg/dl Bedside Creatinine 4.1 mg/dl Bedside Glucose (other) 112 mg/dl Bedside Ionized Calcium (Karen) 1.15 mmol/l Impression Patient is a 66 year old male w/ abd bloating and inability to pass gas (but is passing stool) x 3 days, CT imaging w focal area of inflammatory change seen within the left anterior abdomen w/ reactive ileus. Etiology unclear. Omental infarct vs diverticulitis. Pt has symptomatically improved on IV ABX since admission, noting mild improvement of the pain, no evidence of leukocytosis and VSS. Concerning are the changes at the L2-L3 disc space level new from CT imaging. Plan - Electrolytes per primary team - Continue IV ABX for diverticulitis coverage, could reduce inflammation if ileus is secondary to infectious cause - Clear liquid diet as tolerated - IVF hydration - Limit narcotic analgesia - Daily KUB to monitor ileus - Bowel regimen - GI to follow, please call with any questions or concerns. Will review imaging w/ radiology and attending w/ updates. Attg add: I interviewed and examined pt, reviewed chart and labs. Pt with ESRD , normally stools daily with liquid explosive BM's now admit with abd distention. CT shows left sided colon dilation, stool in rectum, ? tic-itis vs EA. His presentation may be c/w ischemic colitis, related to constipation and dialysis. WIll given enemas to resolve possible fecal impaction, follow abd exams, and consider sigmoidoscopy tomorrow pending clinical course.
[2017-05-10] MEDS: METRONIDAZOLE / NSS 500 MG in PREMIXED NSS 100 ML IV SCH ×2 (14:34→20:10)
[2017-05-10 15:06] VITALS: BP 98/63; PULSE 77; TEMP 36.8; O2SAT 91
[2017-05-10 15:30] VITALS: O2SAT 91
[2017-05-10] MEDS: WARFARIN SOD 7.5 MG TAB PO SCH (15:44)
[2017-05-10] MEDS ORDERED: TAP WATER ENEMA PR ONE ×2 (17:30→20:30)
--- NOTE | 2017-05-10 18:47 | Nephrology Consultation ---
Nephrology Consultation Date of Consultation: May 10, 2017. Attending Physician: Dr Mo Requesting Physician: Dr Mo Reason for Consultation: ESRD on MWF HD History of Present Illness 66 year old male w/ ESRD on MWF HD, chronic/severe low back pain/osteomyelitis, on coumadin for PE a/w bloating/abd pain x [address] concerning for omental infarct v diverticulitis. GI following. For conservative mgt at this time; did have explosive bm yesterday evening prior to arrival w/o much relief in GI sx. His last HD was 05/09 and uneventful. Past Medical/Surgical History Medical Problems: (1) Intractable low back pain Status: Acute (2) Lumbar disc disease Status: Acute (3) Osteomyelitis of lumbar spine Status: Acute -ESRD on MWF HD under [facility] at [facility] -a fib on coumadin -PE on coumadin -diastolic HF -DM2 -chronic back pain after surgery, chronic lumbar osteomyelitis / pseudomonas + cxs in past -HL -ambulatory dysfunction/ w-c bound -morbid obesity Family History Diabetes mellitus MOTHER FH: lung disease FATHER Social History Smoking Status: Never Smoker Alcohol Use: none Drug Use: none Marital Status: single Housing Status: lives alone Occupation Status: disabled Allergies Coded Allergies: No Known Allergies (Verified , 11/30/15) Medications Current Inpatient Medications Medications (Trade) Dose Ordered Sig/George Route Start Time Stop Time Status Last Admin Dose Admin Acetaminophen (Tylenol Tab) 650 mg Q4H PRN PO 05/10/17 08:45 06/09/17 08:44 Calcium Acetate (Phoslo Cap) 1,334 mg TID PO 05/10/17 10:00 06/09/17 09:59 05/10/17 10:35 1,334 MG Carvedilol (Coreg Tab) 3.125 mg BID PO 05/10/17 11:00 06/09/17 10:59 05/10/17 12:10 3.125 MG Warfarin Sodium (Coumadin Tab) 7.5 mg SuTuThSa@1600 PO 05/10/17 16:00 06/09/17 15:59 05/10/17 15:44 7.5 MG Warfarin Sodium (Coumadin Tab) 10 mg MoWeFr@1600 PO 05/11/17 16:00 06/10/17 15:59 Metronidazole 500 mg/Prmx 100 ml @ 100 mls/hr Q6H IV 05/10/17 14:00 05/20/17 13:59 05/10/17 14:34 100 MLS/HR Ciprofloxacin/ Dextrose 400 mg/ Prmx 200 ml @ 100 mls/hr Q24H IV 05/11/17 08:00 05/21/17 07:59 Miscellaneous (Tap Water Enema) 1 ea ONE [place] 05/10/17 17:30 06/09/17 17:29 UNV Miscellaneous (Tap Water Enema) 1 ea ONE [place] 05/10/17 20:30 06/09/17 20:29 UNV Bisacodyl (Dulcolax Supp) 10 mg ONE ONCE [place] 05/10/17 21:00 05/10/17 21:01 UNV Bisacodyl (Dulcolax Supp) 10 mg ONE ONCE [place] 05/11/17 06:00 05/11/17 06:01 UNV Home Meds and Scripts Medications Dose Route/Sig Max Daily Dose Days Date Category Dose Instructions [Antacid With Simethi] Unknown Strength Unknown Dose PO UD 05/10/17 Reported Tylenol (Acetaminophen) 325 Mg Tab 650 Mg PO Q4H PRN 05/10/17 Reported MAX APAP/24HRS = 3GM Kp Ferrous Sulfate (Ferrous Sulfate) 325 Mg Tab 325 Mg PO DAILY 05/10/17 Reported Levaquin (Levofloxacin) 250 Mg Tab 250 Mg PO Q2D 05/10/17 Reported Phoslo 667 Mg (Calcium Acetate) 667 Mg Cap 2 Capsules PO WM 05/10/17 Reported Lidocaine/Prilocaine (Lidocaine-Prilocaine) 1 Cre Cre 1 Appln TOP UD 05/10/17 Reported LIBERAL AMOUNT APPLIED 1 HOUR PRIOR TO DIALYSIS,TOPICALLY OVER DIALYSIS ACCESS. ONCE EVERY SUNDAY/SUNDAY/SUNDAY. Calmoseptine (Menthol-Zinc Oxide) 1 Oin Oin 1 Appln TD TID 05/10/17 Reported Hydrocerin (Skin Protectants, Misc.) 1 Cre Cre 1 Appln TD DAILY 05/10/17 Reported Coreg (Carvedilol) 3.125 Mg Tab 0.5 Tab PO DAILY 3XWEEKLY 05/10/17 Reported TAKE 1/2 TABLET DAILY EVERY SUNDAY/SUNDAY/SUNDAY. Coreg (Carvedilol) 3.125 Mg Tab 0.5 Tab PO BID 4XWEEKLY 05/10/17 Reported TAKE 1/2 TABLET TWICE EVERY SUNDAY/SUNDAY/SUNDAY/ SUNDAY. Coumadin (Warfarin Sod) 2.5 Mg Tab 2.5 Mg PO 3XWK 05/10/17 Reported TAKE WITH 7.5MG EVERY SUNDAY/SUNDAY/SUNDAY = 10MG 3X WEEKLY Coumadin (Warfarin Sod) 7.5 Mg Tab 7.5 Mg PO DAILY 05/10/17 Reported TAKE WITH 2.5MG EVERY SUNDAY/SUNDAY/SUNDAY = 10MG 3 X WEEKLY. Zantac (Ranitidine HCl) 150 Mg Tab 150 Mg PO QPM 11/24/15 Reported Tylenol (Acetaminophen) 325 Mg Tab 650 Mg PO DAILY 09/15/15 Reported MAX APAP/24HRS = 3GMS Gabapentin 100 Mg Cap 200 Mg PO BID 09/15/15 Reported Zocor (Simvastatin) 20 Mg Tab 20 Mg PO QPM 09/15/15 Reported Protonix (Pantoprazole Sodium) 40 Mg Tab 40 Mg PO BID 09/15/15 Reported Roxicodone Ir (Oxycodone HCl) 5 Mg Tab 5 Mg PO 3XWK 09/15/15 Reported DAILY EVERY SUNDAY/SUNDAY/SUNDAY AFTER RETURNING FROM DIALYSIS. Oxycodone Hcl 15 Mg Tab 15 Mg PO QAM 09/15/15 Reported Mag-Ox (Magnesium Oxide) 400 Mg Tab 400 Mg PO QAM 09/15/15 Reported Cleocin (Clindamycin Hcl) 300 Mg Cap 300 Mg PO DAILY 09/15/15 Reported Folic Acid 1 Mg Tab 1 Mg PO QAM 05/12/14 Reported Review of Systems Constitutional: No fever, No weakness, No fatigue Eyes: No worsening of vision ENT: No hearing loss Respiratory: No cough, No shortness of breath Cardiac: + edema (L leg), No chest pain Abdomen: + see HPI Musculoskeletal: + joint pain (back), No muscle pain Male : + problem reported (no change in chronic voiding habits) Neuro: + weakness, + balance problems, No memory loss Psych: No depression symptoms, No anxiety Heme: No abnormal bleeding/bruising Endo: No fatigue Skin: No rash Physical Exam Date Time Temp Pulse Resp B/P (MAP) Pulse Ox O2 Delivery O2 Flow Rate FiO2 05/10/17 15:06 36.8 77 22 98/63 (75) 91 Room Air 05/10/17 09:15 36.7 81 17 111/75 (87) 93 Room Air 05/10/17 09:04 91 20 110/73 92 05/10/17 07:44 93 24 155/77 90 Room Air 05/10/17 07:33 90 Room Air 05/10/17 05:55 95 18 128/53 93 Room Air 05/10/17 05:31 99 05/10/17 05:16 93 Room Air 05/10/17 05:16 36.6 93 22 160/88 94 Room Air 24-Hour Column 05/11/17 07:59 Intake Total 214 ml Balance 214 ml General Appearance: WD/WN, no apparent distress, + obese, + pertinent finding ( on RA very chatty) Eyes: EOMI ENT: normal ENT inspection Neck: supple Respiratory/Chest: lungs clear, no respiratory distress, + decreased breath sounds Cardiovascular: regular rate, rhythm, no edema Abdomen: normal bowel sounds, soft, + distended, + tenderness (L side w/o rebound/guarding) Extremities: + slow capillary refill, + pertinent finding (L leg atrophied mm) Neurologic/Psych: alert, normal mood/affect, oriented x 3 Skin: no jaundice, warm/dry, no rash Diagnostics Last 24 Hours Test 05/10/17 05:20 05/10/17 05:28 05/10/17 12:49 White Blood Count 5.65 K/uL Red Blood Count 4.39 M/uL Hemoglobin 13.1 g/dL Hematocrit 39.6 % Mean Corpuscular Volume 90.2 fL Mean Corpuscular Hemoglobin 29.8 pg Mean Corpuscular Hemoglobin Concent 33.1 g/dl Platelet Count 166 K/uL Mean Platelet Volume 9.2 fL Neutrophils (%) (Auto) 67.5 % Lymphocytes (%) (Auto) 14.9 % Monocytes (%) (Auto) 13.8 % Eosinophils (%) (Auto) 3.4 % Basophils (%) (Auto) 0.2 % Neutrophils # (Auto) 3.82 K/uL Lymphocytes # (Auto) 0.84 K/uL Monocytes # (Auto) 0.78 K/uL Eosinophils # (Auto) 0.19 K/uL Basophils # (Auto) 0.01 K/uL RDW Standard Deviation 50.7 fL RDW Coefficient of Variation 15.4 % Immature Granulocyte % (Auto) 0.2 % Immature Granulocyte # (Auto) 0.01 K/uL Prothrombin Time 27.5 SECONDS Prothromb Time International Ratio 2.7 Activated Partial Thromboplast Time 43.6 SECONDS Partial Thromboplastin Ratio 1.7 Sodium Level 136 mmol/L Potassium Level 2.6 mmol/L 4.4 mmol/L Chloride Level 98 mmol/L Carbon Dioxide Level 29 mmol/L Anion Gap 9.0 mmol/L 18.0 mmol/L Blood Urea Nitrogen 46 mg/dl Creatinine 3.99 mg/dl Est Creatinine Clear Calc Drug Dose 28.3 ml/min Estimated GFR () 17.2 Estimated GFR (Non- 14.9 BUN/Creatinine Ratio 11.5 Random Glucose 112 mg/dl Estimated Average Glucose 120 mg/dl Hemoglobin A1c 5.8 % Calcium Level 8.9 mg/dl Magnesium Level 2.3 mg/dl Total Bilirubin 0.6 mg/dl Direct Bilirubin 0.1 mg/dl Aspartate Amino Transf (AST/SGOT) 13 U/L Alanine Aminotransferase (ALT/SGPT) 16 U/L Alkaline Phosphatase 87 U/L Total Protein 7.9 gm/dl Albumin 3.5 gm/dl Lipase 250 U/L Bedside Hemoglobin 14.3 g/dl Bedside Hematocrit 42 % Bedside Sodium 138 mEq/L Bedside Potassium 2.6 mEq/L Bedside Chloride 95 mEq/L Bedside Total CO2 29 mEq/l Bedside Blood Urea Nitrogen 43 mg/dl Bedside Creatinine 4.1 mg/dl Bedside Glucose (other) 112 mg/dl Bedside Ionized Calcium (Karen) 1.15 mmol/l Diagnostic Radiology: CT abd/pelvis today >> Focal area of inflammatory change seen within the left anterior abdomen. This favors an omental infarct or epiploic appendicitis. However, a diverticulitis could also have a similar appearance. Distended gas and stool-filled colon. This favors an ileus. No evidence for bowel obstruction. Cholelithiasis. Chronic destructive change at the L2-L3 disc space level. This favors a chronic discitis/osteomyelitis. Assessment & Plan 66 y/o M w/ ESRD on MWF HD, intractable lumbar pain w/ chronic osteomyelitis a/ w abdominal bloating w/ abd CT concerning for omental infarct versus diverticulitis; sx improved w/ IV abtx. ESRD Blood pressures/HR, anemia status, electrolytes and volume status acceptable -routine HD tomorrow via [facility] Hypokalemia -rechecked/repleted > recheck in am, sooner if another large bm Abd pain/bloating > diverticulitis v ometal infarct -per primary service and GI Appreciate consult; will follow with you.
[2017-05-10] MEDS ORDERED: BISACODYL 10 MG SUPP PR ONE (21:00)
[2017-05-10] MEDS ORDERED: CIPROFLOXACIN / D5W 400 MG in PREMIXED IN D5W 200 ML IV SCH (21:00)
--- NOTE | 2017-05-10 21:30 | EMERGENCY ROOM VISIT NOTE ---
History First contact with patient: 05:09 Chief Complaint: ABDOMINAL PAIN Stated Complaint: ABD PAIN Nursing Triage Summary: PT presents with abd distension and diarrhea started today. PT abd very distended and hard, abd also very tender in lower quadrants. PT had diarrheal stool today, per staff amount was a lot more than normal for PT. PT has no cough or congestion, PT denies fever/chills, PT has no nauesa or vomiting. HX of kidney failure, PT is on dialysis. History of Present Illness The patient is a 66 year old male who presents to the Emergency Room with complaints of lower abdominal discomfort for the past few hours described as bloating, ranging in severity 1 out of 10. Palpation makes it worse nothing makes it better. It does not radiate. Colonoscopy in 2012 was normal. No history of diverticulitis or diverticulosis. No recent antibiotics. Patient is on dialysis and receives dialysis Sunday. He has a fistula in the left antecubital region. Dr. 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 Patient denies chest pain, dyspnea, fever, chills, nausea, vomiting, flank pain, urinary problems. He still makes a little bit a urine. He was eating and drinking normally yesterday. He resides at [facility]. He states he has left leg weakness from a back surgery. Patient states had an episode of loose stool tonight. No blood or black in it. He has had prior abdominal surgeries. No history of bowel obstructions in the past. Review of Systems An 10 system review of systems was completed with positives and pertinent negatives listed in the HPI. 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 (9) Degenerative disc disease, lumbar (10) Depression (11) Diarrhea (12) Dyslipidemia (13) History of adenomatous polyp of colon (14) History of diabetes mellitus (15) History of DVT of lower extremity (16) History of pulmonary embolism (17) Nocturnal hypoxemia (18) Obesity, morbid, BMI 40.0-49.9 (19) Orthostasis (20) Osteoarthritis (21) Spinal stenosis of lumbar region (22) Syncope Surgical Problems: (1) Status post appendectomy (2) Status post colonoscopy (3) Status post lumbar surgery Family History Diabetes mellitus MOTHER FH: lung disease FATHER Social History Smoking Status: Never Smoker Alcohol Use: none Drug Use: none Marital Status: single Housing Status: lives alone Occupation Status: disabled Current/Historical Medications Scheduled Acetaminophen (Tylenol), 650 MG PO DAILY Calcium Acetate (Phoslo 667 Mg), 2 CAPSULES PO WM Carvedilol (Coreg), 0.5 TAB PO BID 4XWEEKLY Carvedilol (Coreg), 0.5 TAB PO DAILY 3XWEEKLY Clindamycin Hcl (Cleocin), 300 MG PO DAILY Ferrous Sulfate (Kp Ferrous Sulfate), 325 MG PO DAILY Folic Acid (Folic Acid), 1 MG PO QAM Gabapentin (Gabapentin), 200 MG PO BID Levofloxacin (Levaquin), 250 MG PO Q2D Lidocaine-Prilocaine (Lidocaine/Prilocaine), 1 APPLN TOP UD Magnesium Oxide (Mag-Ox), 400 MG PO QAM Menthol-Zinc Oxide (Calmoseptine), 1 APPLN TD TID Oxycodone Hcl (Oxycodone Hcl), 15 MG PO QAM Oxycodone Ir (Roxicodone Ir), 5 MG PO 3XWK Pantoprazole (Protonix), 40 MG PO BID Ranitidine (Zantac), 150 MG PO QPM Simvastatin (Zocor), 20 MG PO QPM Skin Protectants, Misc. (Hydrocerin), 1 APPLN TD DAILY Warfarin Sod (Coumadin), 7.5 MG PO DAILY Warfarin Sod (Coumadin), 2.5 MG PO 3XWK [Antacid With Simethi], Unknown Dose PO UD Scheduled PRN Acetaminophen Tab (Tylenol), 650 MG PO Q4H PRN for Pain or Fever Physical Exam Vital Signs Date Time Temp Pulse Resp B/P (MAP) Pulse Ox O2 Delivery O2 Flow Rate FiO2 05/10/17 09:15 36.7 81 17 111/75 (87) 93 Room Air 05/10/17 09:04 91 20 110/73 92 05/10/17 07:44 93 24 155/77 90 Room Air 05/10/17 07:33 90 Room Air 05/10/17 05:55 95 18 128/53 93 Room Air 05/10/17 05:31 99 05/10/17 05:16 93 Room Air 05/10/17 05:16 36.6 93 22 160/88 94 Room Air Physical Exam VITALS: Vitals are noted on the nurse's note and reviewed by myself. Vital signs hypertensive GENERAL: Pleasant male, in no acute distress, nondiaphoretic, well-developed well-nourished. SKIN: The skin was without rashes, erythema or bruising. There is no tenting of the skin. Capillary reflex less than 2 seconds. HEAD: Normocephalic atraumatic. EARS: External auditory canals clear, tympanic membranes pearly mejia without erythema or effusion bilaterally. EYES: Pupils equal round and reactive to light and accommodation. Conjunctivae without injection, sclerae without icterus. Extraocular movements intact. NOSE: Patent, turbinates without inflammation or discharge. No sinus tenderness. MOUTH: Mucous membranes moist. Pharynx without erythema or exudate. Uvula midline. Airway patent. Tongue does not deviate. NECK: Supple without nuchal rigidity. No lymphadenopathy. No thyromegaly. Cervical spine is nontender. No JVD. HEART: Irregularly irregular with known history of A. fib on anticoagulation LUNGS: Clear to auscultation bilaterally without wheezes, rales or rhonchi. No retractions or accessory muscle use. ABDOMEN: Positive bowel sounds x 4. Normal tympanic percussion. Soft, protuberant, obese, tender to palpation lower abdomen,, without masses or organomegaly. Bobby sign negative. No guarding or rebound tenderness. No CVA tenderness MUSCULOSKELETAL: No muscle atrophy, erythema, noted. +1 pitting edema up to mid tib-fib bilaterally. Chronic venous stasis unchanged per patient NEURO: Patient was alert and oriented to person place and time. Normal sensation to light and sharp touch. No focal neurological deficits. Medical Decision & Procedures Laboratory Results 05/10/17 05:20 Red Blood Count 4.39, Mean Corpuscular Volume 90.2, Mean Corpuscular Hemoglobin 29.8, Mean Corpuscular Hemoglobin Concent 33.1, Mean Platelet Volume 9.2, Neutrophils (%) (Auto) 67.5, Lymphocytes (%) (Auto) 14.9, Monocytes (%) (Auto) 13.8, Eosinophils (%) (Auto) 3.4, Basophils (%) (Auto) 0.2, Neutrophils # (Auto ) 3.82, Lymphocytes # (Auto) 0.84, Monocytes # (Auto) 0.78, Eosinophils # (Auto ) 0.19, Basophils # (Auto) 0.01 05/10/17 05:20 Test 05/10/17 05:20 05/10/17 05:28 White Blood Count 5.65 K/uL (4.8-10.8) Red Blood Count 4.39 M/uL (4.7-6.1) Hemoglobin 13.1 g/dL (14.0-18.0) Hematocrit 39.6 % (42-52) Mean Corpuscular Volume 90.2 fL (80-100) Mean Corpuscular Hemoglobin 29.8 pg (25-34) Mean Corpuscular Hemoglobin Concent 33.1 g/dl (32-36) Platelet Count 166 K/uL (130-400) Mean Platelet Volume 9.2 fL (7.4-10.4) Neutrophils (%) (Auto) 67.5 % Lymphocytes (%) (Auto) 14.9 % Monocytes (%) (Auto) 13.8 % Eosinophils (%) (Auto) 3.4 % Basophils (%) (Auto) 0.2 % Neutrophils # (Auto) 3.82 K/uL (1.4-6.5) Lymphocytes # (Auto) 0.84 K/uL (1.2-3.4) Monocytes # (Auto) 0.78 K/uL (0.11-0.59) Eosinophils # (Auto) 0.19 K/uL (0-0.5) Basophils # (Auto) 0.01 K/uL (0-0.2) RDW Standard Deviation 50.7 fL (36.4-46.3) RDW Coefficient of Variation 15.4 % (11.5-14.5) Immature Granulocyte % (Auto) 0.2 % Immature Granulocyte # (Auto) 0.01 K/uL (0.00-0.02) Prothrombin Time 27.5 SECONDS (9.0-12.0) Prothromb Time International Ratio 2.7 (0.9-1.1) Activated Partial Thromboplast Time 43.6 SECONDS (21.0-31.0) Partial Thromboplastin Ratio 1.7 Est Creatinine Clear Calc Drug Dose 28.3 ml/min Estimated GFR () 17.2 Estimated GFR (Non- 14.9 BUN/Creatinine Ratio 11.5 (10-20) Estimated Average Glucose 120 mg/dl Hemoglobin A1c 5.8 % (4.5-5.6) Calcium Level 8.9 mg/dl (8.5-10.1) Magnesium Level 2.3 mg/dl (1.8-2.4) Total Bilirubin 0.6 mg/dl (0.2-1) Direct Bilirubin 0.1 mg/dl (0-0.2) Aspartate Amino Transf (AST/SGOT) 13 U/L (15-37) Alanine Aminotransferase (ALT/SGPT) 16 U/L (12-78) Alkaline Phosphatase 87 U/L (45-117) Total Protein 7.9 gm/dl (6.4-8.2) Albumin 3.5 gm/dl (3.4-5.0) Lipase 250 U/L (73-393) Bedside Hemoglobin 14.3 g/dl (14.0-18.0) Bedside Hematocrit 42 % (42-52) Bedside Sodium 138 mEq/L (135-144) Bedside Potassium 2.6 mEq/L (3.3-5.0) Bedside Chloride 95 mEq/L (101-112) Bedside Total CO2 29 mEq/l (24-31) Anion Gap 18.0 mmol/L (16-25) Bedside Blood Urea Nitrogen 43 mg/dl (7-18) Bedside Creatinine 4.1 mg/dl (0.6-1.3) Bedside Glucose (other) 112 mg/dl (70-99) Bedside Ionized Calcium (Karen) 1.15 mmol/l (1.12-1.32) Medications Administered Medications (Trade) Dose Ordered Sig/George Route Start Time Stop Time Status Last Admin Dose Admin Potassium Chloride (Klor-Con M10) 40 meq NOW STAT PO 05/10/17 06:02 05/10/17 06:04 DC 05/10/17 07:43 40 MEQ Ciprofloxacin/ Dextrose (Cipro / D5W) 400 mg NOW STAT IV 05/10/17 07:23 05/10/17 07:25 DC 05/10/17 07:44 400 MG Metronidazole (Flagyl / Nss) 500 mg NOW STAT IV 05/10/17 07:23 05/10/17 07:25 DC 05/10/17 07:44 500 MG Potassium Chloride 10 meq/ Prmx 100 ml @ 100 mls/hr Q1H IV 05/10/17 08:30 05/10/17 10:29 DC 05/10/17 12:10 100 MLS/HR ED Course Prior records/ancillary studies reviewed. Triage Nursing notes reviewed. Additional history obtained from EMS. The patient's history was concerning for abdominal pain. Differential diagnosis: Etiologies such as diverticulitis, PUD, biliary pathology, UTI, pancreatitis, obstruction, mesenteric ischemia, aortic pathology, infections, inflammatory bowel disease, renal colic, as well as others were entertained. Physical examination findings: As above. ER treatment provided: Patient was observed On reassessment the patient felt better. Diagnostics interpreted by me: The labs revealed stable creatinine per chart review. Therapeutic INR, potassium was replaced No leukocytosis, stable anemia per chart review Imaging studies: CT ABDOMEN & PELVIS Without Contrast: Prior from 12/30/14 Mostly gas-distended rectosigmoid. Diffusely distended redundant colon. Colonic diverticulosis. Focal area of wall thickening of the mid descending colon in the left abdomen with mild surrounding fat stranding. DDX includes diverticulitis, although specific inflamed diverticulum not visualized, colitis, malignancy. Small bowel is not dilated. Normal appendix. Large amount of fecal material in the cecum/ascending colon. Gallstones Postoperative changes of the lower lumbar spine. Similar appearance of irregular endplates at L2-3, sclerosis. Although chronic appearance, correlate for discitis osteomyelitis. Retrolisthesis of L2 on 3 has mildly increased. Severe central canal stenosis at this level, and foraminal stenoses. Radiologist: Sharad Shi M.D. Consultation: A consultation was placed with GI, Dr Castrejon and recommends observation/ admission to medicine with consult. I consulted medicine and spoke with Dr. Pinedo and will eval the patient. the case was discussed and diagnostics were reviewed. The patient was evaluated in the ER for further treatment. Exam and history seem consistent with dilated colon with possible diverticulitis. Medicine was consulted for possible admission. antibiotics was given for possible diverticulitis with review with the Hospitalist. Patient has no fevers or no real pain in left lower quadrant on exam. There is no leukocytosis. GI recommends medical admission with consult and a C. difficile test. Patient did not have an acute abdomen on exam. He is well- appearing. He was tolerating fluids. Patient has end-stage renal disease. He receives dialysis Sunday. By the evaluation outlined above emergent etiologies such as PUD, biliary pathology, UTI, pancreatitis, obstruction, mesenteric ischemia, aortic pathology, infections, inflammatory bowel disease, renal colic, as well as others were deemed relatively unlikely. The pt informed about the findings as listed above. All questions were answered and pleased with the treatment. Case reviewed with my attending The chart was completed utilizing [employer] Speech voice recognition software. Grammatical errors, random word insertions, pronoun errors, and incomplete sentences are an occassional consequence of this system due to software limitations, ambient noise, and hardware issues. Any formal questions or concerns about the content, text, or information contained within the body of this dictation should be directly addressed to the physician graphic design assistant for clarification. Medical Decision As above Medication Reconcilliation Current Medication List: was personally reviewed by me Blood Pressure Screening Patient's blood pressure: Normal blood pressure Impression Primary Impression: Abdominal distension Additional Impressions: Hypokalemia Anemia Departure Information [facility] Patient Instructions My [facility] Problem Qualifiers
[2017-05-10 23:20] VITALS: BP 107/66; PULSE 74; TEMP 36.6; O2SAT 92
[2017-05-10 23:30] VITALS: O2SAT 92
[2017-05-11] VITALS (20 sets, daily range): BP systolic 94–119; BP diastolic 51–78; PULSE 70–101; TEMP 36.4–36.7; O2SAT 92–93
[2017-05-11] MEDS: METRONIDAZOLE / NSS 500 MG in PREMIXED NSS 100 ML IV SCH ×2 (02:26→08:14)
[2017-05-11] MEDS ORDERED: BISACODYL 10 MG SUPP PR ONE (06:00)
[2017-05-11] MEDS ORDERED: HEPARIN SOD (PORCINE) 1000 UNIT/ML 10 ML VIAL IV SCH (08:00)
[2017-05-11] MEDS ORDERED: CIPROFLOXACIN / D5W 400 MG in PREMIXED IN D5W 200 ML IV SCH (08:00)
--- NOTE | 2017-05-11 08:05 | DIAGNOSTIC IMAGING REPORT ---
KUB HISTORY: ileus COMPARISON: Abdomen and pelvis CT 05/10/2017. FINDINGS: Progressive distention of the gas and stool-filled colon. This most pronounced at the sigmoid colon which measures up to 14 cm in diameter. No significant small bowel dilatation. No renal calculi. No ureteral calculi. No pneumoperitoneum or pneumatosis. IMPRESSION: Progressive distention of the gas-filled and stool-filled colon. This raises the possibility of a distal obstruction due to fecal impaction or rectal stenosis. GI consultation is recommended for possible rectal tube placement for colonic decompression. Electronically signed by: Mauri Rojas M.D. 05/11/2017 8:04 AM Dictated Date/Time: 05/11/2017 8:00 AM
[2017-05-11] MEDS: CARVEDILOL 3.125 MG TAB PO SCH ×2 (08:43→20:42)
[2017-05-11] MEDS: CALCIUM ACETATE 667MG GELCAP PO SCH ×3 (08:43→20:48)
--- NOTE | 2017-05-11 08:50 | Gastroenterology Progress Note ---
Progress Note Date of Service: May 11, 2017 Subjective Pt evaluation today including: conversation w/ patient, physical exam, chart review, lab review Pt seen and evaluated, chart reviewed. Had enema x 2 and suppository x 2 last evening which relieved some fecal material, however, KUB this AM with progressive colon dilation and some small bowel dilation as well. Continues to have distention and abd pain. No nausea, vomiting. No CP, SOB. Was to have dialysis this AM. KUB 05/11/17: Progressive distention of the gas and stool-filled colon. This most pronounced at the sigmoid colon which measures up to 14 cm in diameter. No significant small bowel dilatation. No renal calculi. No ureteral calculi. No pneumoperitoneum or pneumatosis. CT ABD/Pelvis 05/10/17: Focal area of inflammatory change seen within the left anterior abdomen. This favors an omental infarct or epiploic appendagitis. However, a diverticulitis could also have a similar appearance. Distended gas and stool-filled colon. This favors an ileus. No evidence for bowel obstruction. Cholelithiasis. Chronic destructive change at the L2-L3 disc space level. This favors a chronic discitis/osteomyelitis. EGD 11/30/15: Normal esophagus. Normal stomach. Normal examined duodenum. No specimens collected Colonoscopy 08/10/10: The entire examined colon is normal. Review of Systems Constitutional: No fever, No chills Respiratory: No cough, No shortness of breath Cardiac: No chest pain Abdomen: + pain, No nausea, No vomiting, No diarrhea, No constipation, No GI bleeding, No dysphagia, No odynophagia Medications Current Inpatient Medications Medications (Trade) Dose Ordered Sig/George Route Start Time Stop Time Status Last Admin Dose Admin Acetaminophen (Tylenol Tab) 650 mg Q4H PRN PO 05/10/17 08:45 06/09/17 08:44 Calcium Acetate (Phoslo Cap) 1,334 mg TID PO 05/10/17 10:00 06/09/17 09:59 05/10/17 21:16 1,334 MG Carvedilol (Coreg Tab) 3.125 mg BID PO 05/10/17 11:00 06/09/17 10:59 05/10/17 21:16 3.125 MG Warfarin Sodium (Coumadin Tab) 7.5 mg SuTuThSa@1600 PO 05/10/17 16:00 06/09/17 15:59 05/10/17 15:44 7.5 MG Warfarin Sodium (Coumadin Tab) 10 mg MoWeFr@1600 PO 05/11/17 16:00 06/10/17 15:59 Metronidazole 500 mg/Prmx 100 ml @ 100 mls/hr Q6H IV 05/10/17 14:00 05/20/17 13:59 05/11/17 08:14 100 MLS/HR Ciprofloxacin/ Dextrose 400 mg/ Prmx 200 ml @ 100 mls/hr Q24H IV 05/11/17 08:00 05/21/17 07:59 05/11/17 08:14 100 MLS/HR Heparin Sodium (Porcine) (Heparin Iv Bolus) 1,000 unit TODAY@0800 IV 05/11/17 08:00 05/11/17 16:00 Heparin Sodium (Porcine) (Heparin Iv Bolus) 400 unit Q1H IV 05/11/17 08:00 05/11/17 10:01 Objective Vital Signs Date Time Temp Pulse Resp B/P (MAP) Pulse Ox O2 Delivery O2 Flow Rate FiO2 05/10/17 23:30 92 Room Air 05/10/17 23:20 36.6 74 16 107/66 (80) 92 Room Air 05/10/17 15:30 91 Room Air 05/10/17 15:06 36.8 77 22 98/63 (75) 91 Room Air 05/10/17 09:15 36.7 81 17 111/75 (87) 93 Room Air 05/10/17 09:04 91 20 110/73 92 Physical Exam General Appearance: no apparent distress Eyes: PERRL ENT: hearing grossly normal Neck: supple Abdomen: + distended, + tenderness, + pertinent finding (hypoactive BS) Neurologic/Psych: alert, normal mood/affect, oriented x 3 Skin: normal color, no jaundice, no rash Laboratory Results Last 24 Hours Test 05/10/17 12:49 05/11/17 04:44 05/11/17 08:30 Potassium Level 4.4 mmol/L Assessment and Plan Patient is a 66 year old male w/ abd bloating and inability to pass gas (but is passing stool) x 3 days, CT imaging w focal area of inflammatory change seen within the left anterior abdomen w/ reactive ileus. Etiology unclear. Omental infarct vs diverticulitis. Pt has symptomatically improved on IV ABX since admission, noting mild improvement of the pain, no evidence of leukocytosis and VSS. Concerning are the changes at the L2-L3 disc space level new from CT imaging. colonic decompression Attg add: I interviewed and examined pt, reviewed chart and labs. Pt is stooling , but abd is persistently distended and tender in RLQ. His sigmoid diameter has increased. Will plan decompression today.
[2017-05-11 09:20] LABS: BASO % 0.2 %; BASO ABS # 0.01 K/uL (0-0.2); EOS % 3.4 %; EOS ABS # 0.16 K/uL (0-0.5); HEMATOCRIT 37.4 % (42-52); HEMOGLOBIN 12.4 g/dL (14.0-18.0); IG# 0.01 K/uL (0.00-0.02); LYMPH % 16.6 %; LYMPH ABS # 0.79 K/uL (1.2-3.4); MEAN CELL VOLUME 89.7 fL (80-100); MEAN CORPUSCULAR HEMOGLOBIN 29.7 pg (25-34); MEAN CORPUSCULAR HGB CONC 33.2 g/dl (32-36); MEAN PLATELET VOLUME 9.1 fL (7.4-10.4); MONO % 10.9 %; MONO ABS # 0.52 K/uL (0.11-0.59); NEUT % 68.7 %; NEUT ABS # 3.27 K/uL (1.4-6.5); PLATELET COUNT 153 K/uL (130-400); RED CELL DISTRIBUTION WIDTH CV 15.4 % (11.5-14.5); WHITE BLOOD COUNT 4.76 K/uL (4.8-10.8)
[2017-05-11 09:27] LABS: INR 2.7 (0.9-1.1)
[2017-05-11] MEDS ORDERED: MIDAZOLAM HCL 1 MG/ML 2ML VIAL ONE (09:44)
[2017-05-11] MEDS ORDERED: MINERAL OIL 30 ML UDC ONE ×2 (09:46→11:18)
[2017-05-11] MEDS ORDERED: KETAMINE HCL INJ 50 MG/ML 10 ML VIAL ONE (09:46)
[2017-05-11 10:15] LABS: ALBUMIN 3.3 gm/dl (3.4-5.0); CALCIUM 9.2 mg/dl (8.5-10.1); CREATININE 4.83 mg/dl (0.60-1.40); TOTAL PROTEIN 6.9 gm/dl (6.4-8.2)
[2017-05-11 10:20] LABS: POTASSIUM 2.6 mmol/L (3.5-5.1)
[2017-05-11] MEDS ORDERED: PROPOFOL IV EMULSION 10 MG/ML 20 ML VIAL IV ONE (11:31)
[2017-05-11] MEDS ORDERED: LIDOCAINE HCL 2% 2 ML VIAL (20MG/ML) ONE (11:31)
[2017-05-11] MEDS ORDERED: PHENYLEPHRINE 100MCG/ML 5ML SYR ONE (11:41)
--- NOTE | 2017-05-11 11:48 | GI REPORT ---
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 Medicines: See the Anesthesia note for documentation of the administered medications Complications: No immediate complications. Estimated Blood Loss: Estimated blood loss: none. Procedure: Pre-Anesthesia Assessment: - ASA Grade Assessment: III - A patient with severe systemic disease. After I obtained informed consent, the scope was passed under direct vision. Throughout the procedure, the patient's blood pressure, pulse, and oxygen saturations were monitored continuously. The scope was introduced through the anus and advanced to the transverse colon. The colonoscopy was performed without difficulty. The patient tolerated the procedure well. Findings: The perianal and digital rectal examinations were normal. The colon was markedly dilated and filled with stool. There were areas of twisting of the colon that were traversed and straightened using gentle insufflation. A wire was placed and the scope was withdrawn. A decompression tube was placed over the wire. The patient's abdomen was markedly softer post procedure. Recommendation: - Discharge patient to home. Laxative regimen, Relistor. Dheeraj Galdamez M.D. Dheeraj Galdamez MD 05/11/2017 11:48:23 AM This report has been signed electronically. Note Initiated On: 05/11/2017 10:25 AM I attest to the content of the Intraoperative Record and orders documented therein, exceptions below
--- NOTE | 2017-05-11 12:15 | Anesthesiology Progress Note ---
Anesthesia Post Op Note Date & Time May 11, 2017 at 12:14 Vital Signs Pain Intensity: 0 Vital Signs Past 12 Hours Date Time Temp Pulse Resp B/P (MAP) Pulse Ox O2 Delivery O2 Flow Rate FiO2 05/11/17 12:06 81 16 127/84 (98) 93 Room Air 05/11/17 11:51 87 16 129/75 (93) 92 Room Air 05/11/17 11:36 89 16 120/58 (78) 92 Room Air 05/11/17 09:23 36.7 92 20 113/85 (94) 94 Room Air 05/11/17 08:45 36.4 101 16 115/68 (84) 92 Room Air 05/11/17 07:10 Room Air Notes Mental Status: alert / awake / arousable, participated in evaluation Pt Amnestic to Procedure: Yes Nausea / Vomiting: adequately controlled Pain: adequately controlled Airway Patency, RR, SpO2: stable & adequate BP & HR: stable & adequate Hydration State: stable & adequate Anesthetic Complications: no major complications apparent
--- NOTE | 2017-05-11 12:49 | DIAGNOSTIC IMAGING REPORT ---
KUB HISTORY: ileus, hx colon decompression COMPARISON: None. FINDINGS: Interval placement of a rectal tube with the tip terminating near the mid descending colon. Interval decompression of the gas-filled distal fill colon. This now measures up to 9 cm in diameter. No dilated loops of small bowel. No renal calculi. No ureteral calculi. No pneumoperitoneum or pneumatosis. IMPRESSION: Interval decompression of the distended gas and stool-filled colon status post placement of a rectal tube. The tip terminates in the expected location of the mid descending colon. Electronically signed by: Mauri Rojas M.D. 05/11/2017 12:48 PM Dictated Date/Time: 05/11/2017 12:42 PM
--- NOTE | 2017-05-11 13:22 | Progress Note ---
Progress Note Date of Service May 11, 2017. Progress Note Pt s/p colonic decompression w/ rectal tube placement. Can have a dose of Relistor today and a second dose on 05/13/17. Will use miralax 17 g BID and senna AM for additional decompression x 1 week and then would decrease regimen to miralax 17 g daily and colace 100 mg BID
--- NOTE | 2017-05-11 14:25 | Progress Note ---
Progress Note Date of Service May 11, 2017. Progress Note Please see cscopy report. Pt s/p successful decompression. There was no evidence of tic-itis on cscopy -- > d/c abx. It is possible that pt had an impaction - pt with fair amount of stool in rectum. There were also several areas of twisting or narrowing, suggestive of volvulus. There was no evidence of mucosal ischemia. Please adv diet to low residue. Laxative regimen - Miralax BID, Senna, Relistor. Correct elyte abnormalities. Encourage mobility is this sedentary pt. Please keep rectal tube in over weekend; would plan for d/c on Sunday, but does not need to be replaced if falls out earlier.
[2017-05-11] MEDS ORDERED: METHYLNALTREXONE BROMIDE INJ 12 MG/0.6 ML SYR SQ SCH (16:00)
--- NOTE | 2017-05-11 16:36 | Dialysis Progress Note ---
Nephrology Dialysis Note Date of Service: May 11, 2017. Subjective had emergent bowel decompression today; feeling much improved in terms of bloating; no sob; avf iniltrated; has rectal tube Objective Date Time Temp Pulse Resp B/P (MAP) Pulse Ox O2 Delivery O2 Flow Rate FiO2 05/11/17 16:00 76 116/60 05/11/17 15:45 76 108/56 05/11/17 15:30 77 105/57 05/11/17 15:15 87 115/71 05/11/17 15:00 86 119/78 05/11/17 14:45 83 110/62 05/11/17 14:30 75 94/60 05/11/17 14:15 76 103/51 05/11/17 14:05 70 109/53 05/11/17 13:15 80 111/63 05/11/17 13:00 82 111/71 05/11/17 12:47 36.6 79 100/62 (75) 05/11/17 12:06 81 16 127/84 (98) 93 Room Air 05/11/17 11:51 87 16 129/75 (93) 92 Room Air 05/11/17 11:36 89 16 120/58 (78) 92 Room Air 05/11/17 09:23 36.7 92 20 113/85 (94) 94 Room Air 05/11/17 08:45 36.4 101 16 115/68 (84) 92 Room Air 05/11/17 07:10 Room Air 05/10/17 23:30 92 Room Air 05/10/17 23:20 36.6 74 16 107/66 (80) 92 Room Air Physical Exam: General Appearance: WD/WN, no apparent distress, + obese, + pertinent finding ( on RA very chatty) Eyes: EOMI ENT: normal ENT inspection Neck: supple Respiratory/Chest: lungs clear, no respiratory distress, + decreased breath sounds Cardiovascular: regular rate, rhythm, no edema Abdomen: normal bowel sounds, soft, not distended, jose; NT Extremities: + slow capillary refill, + pertinent finding (L leg atrophied mm) Neurologic/Psych: alert, normal mood/affect, oriented x 3 Skin: no jaundice, warm/dry, no rash Current Inpatient Medications Medications (Trade) Dose Ordered Sig/George Route Start Time Stop Time Status Last Admin Dose Admin Acetaminophen (Tylenol Tab) 650 mg Q4H PRN PO 05/10/17 08:45 06/09/17 08:44 Calcium Acetate (Phoslo Cap) 1,334 mg TID PO 05/10/17 10:00 06/09/17 09:59 05/10/17 21:16 1,334 MG Carvedilol (Coreg Tab) 3.125 mg BID PO 05/10/17 11:00 06/09/17 10:59 05/10/17 21:16 3.125 MG Warfarin Sodium (Coumadin Tab) 7.5 mg SuTuThSa@1600 PO 05/10/17 16:00 06/09/17 15:59 05/10/17 15:44 7.5 MG Warfarin Sodium (Coumadin Tab) 10 mg MoWeFr@1600 PO 05/11/17 16:00 06/10/17 15:59 Methylnaltrexone [place] (Relistor Inj) 12 mg Q2D@1600 SQ 05/11/17 16:00 06/10/17 15:59 Senna (Senokot Tab) 8.6 mg QAM PO 05/12/17 09:00 06/11/17 08:59 Polyethylene (Miralax Powder Packet) 17 gm BID PO 05/11/17 21:00 06/10/17 16:59 Last 24 Hours Test 05/11/17 08:57 White Blood Count 4.76 K/uL Red Blood Count 4.17 M/uL Hemoglobin 12.4 g/dL Hematocrit 37.4 % Mean Corpuscular Volume 89.7 fL Mean Corpuscular Hemoglobin 29.7 pg Mean Corpuscular Hemoglobin Concent 33.2 g/dl Platelet Count 153 K/uL Mean Platelet Volume 9.1 fL Neutrophils (%) (Auto) 68.7 % Lymphocytes (%) (Auto) 16.6 % Monocytes (%) (Auto) 10.9 % Eosinophils (%) (Auto) 3.4 % Basophils (%) (Auto) 0.2 % Neutrophils # (Auto) 3.27 K/uL Lymphocytes # (Auto) 0.79 K/uL Monocytes # (Auto) 0.52 K/uL Eosinophils # (Auto) 0.16 K/uL Basophils # (Auto) 0.01 K/uL RDW Standard Deviation 51.0 fL RDW Coefficient of Variation 15.4 % Immature Granulocyte % (Auto) 0.2 % Immature Granulocyte # (Auto) 0.01 K/uL Prothrombin Time 28.3 SECONDS Prothromb Time International Ratio 2.7 Sodium Level 135 mmol/L Potassium Level 2.6 mmol/L Chloride Level 101 mmol/L Carbon Dioxide Level 24 mmol/L Anion Gap 10.0 mmol/L Blood Urea Nitrogen 59 mg/dl Creatinine 4.83 mg/dl Est Creatinine Clear Calc Drug Dose 23.4 ml/min Estimated GFR () 13.7 Estimated GFR (Non- 11.8 BUN/Creatinine Ratio 12.5 Random Glucose 116 mg/dl Calcium Level 9.2 mg/dl Total Bilirubin 0.6 mg/dl Aspartate Amino Transf (AST/SGOT) 11 U/L Alanine Aminotransferase (ALT/SGPT) 14 U/L Alkaline Phosphatase 75 U/L Total Protein 6.9 gm/dl Albumin 3.3 gm/dl Globulin 3.6 gm/dl Albumin/Globulin Ratio 0.9 Hepatitis B Surface Antigen NEG Hepatitis B Surface Antibody NEG Date/Time Source Procedure Growth Status 05/10/17 19:15 Nasal MRSA DNA Surveillance Screen - Final Specimen Negative for MRSA by DNA Probe Complete Assessment & Plan 66 y/o M w/ ESRD on MWF HD, intractable lumbar pain w/ chronic osteomyelitis a/ w abdominal bloating w/ abd CT concerning for omental infarct versus diverticulitis; sx improved w/ IV abtx. ESRD Blood pressures/HR, anemia status, electrolytes and volume status acceptable -routine HD today on 4K bath d/t lower K Hypokalemia -recheck this evening and will replete po if possible >daily bmp >needs low phos but NOT low K diet Abd pain/bloating > s/p emergent colonoscopic decompression; no diverticulitis; impaction a possible dx and some suggestion of volvulus on exam -per primary service and GI Appreciate consult; will follow with you.
[2017-05-11] MEDS ORDERED: POLYETHYLENE (MIRALAX) 17 GM PACK PO SCH (17:00)
--- NOTE | 2017-05-11 17:43 | Progress Note ---
Internal Med Progress Note Date of Service: May 11, 2017. Provider Documentation: SUBJECTIVE: Patient seen at end of hemoclasis session. patient reports abdominal discomfort improved after rectal tube was placed earlier today before the dialysis. OBJECTIVE: Exam: General-no acute distress Eyes- EOMI Neck- trachea midline, no JVD Lungs- CTABL Heart- Regular rate Abdomen- truncal obesity, less distended today, still some tenderness on palpable of left side of the abdomen Extremities- no edema, patient can move left leg somewhat but not as strong as right leg Neuro- awake and alert ASSESSMENT & PLAN: Admitted for abdominal pain, diarrhea 05/11/17 patient s/p colonoscopy and decompression with rectal tube; several areas of twisting or narrowing, suggestive of volvulus; no evidence of mucosal ischemia, antibiotics can be stopped as no evidence of inflammation and patient can have diet advanced and laxative regimen - Miralax BID, Senna, Relistor.as per gastroenterology service Minimize narcotics to avoid ileus Chronic destructive change at the L2-L3 disc space level: chronic discitis/ osteomyelitis as per radiology read. patient does report history of spinal surgery in the past but resulting complications led to the hardware removed and subsequently with relative left leg immobility -admission blood cultures pending -patient without evidence for sepsis ESRD on dialysis M/W/F through left arm fistula -continue calcium acetate -received dialysis on 05/11/17 -resume iron Electrolytes initial hypokalemia from diarrhea and previous dialysis was corrected serum potassium again low this morning before colonoscopy and dialysis give oral potassium monitor electrolytes post dialysis Urination: patient reports urination despite being on dialysis, denies recent urinary symptoms Morbid Obesity with BMI 43 -resume statin Patient denies history of diabetes but this has been listed as problem list on outpatient records - is not on medications for diabetes, HbA1c 5.8 Continue Coumadin and low dose carvedilol for history of atrial fibrillation DVT ppx - patient is anticoagulated on warfarin for history of atrial fibrillation, INR is therapeutic, continue Coumadin for now FULL Code Status sister Keely [phone] Vital Signs: Date Time Temp Pulse Resp B/P (MAP) Pulse Ox O2 Delivery O2 Flow Rate FiO2 05/11/17 17:07 36.6 83 112/64 (80) 05/11/17 17:00 83 95/53 05/11/17 16:45 81 109/54 05/11/17 16:32 77 101/59 05/11/17 16:00 76 116/60 05/11/17 15:45 76 108/56 05/11/17 15:30 77 105/57 05/11/17 15:15 87 115/71 05/11/17 15:00 86 119/78 05/11/17 14:45 83 110/62 05/11/17 14:30 75 94/60 05/11/17 14:15 76 103/51 05/11/17 14:05 70 109/53 05/11/17 13:15 80 111/63 05/11/17 13:00 82 111/71 05/11/17 12:47 36.6 79 100/62 (75) 05/11/17 12:06 81 16 127/84 (98) 93 Room Air 05/11/17 11:51 87 16 129/75 (93) 92 Room Air 05/11/17 11:36 89 16 120/58 (78) 92 Room Air 05/11/17 09:23 36.7 92 20 113/85 (94) 94 Room Air 05/11/17 08:45 36.4 101 16 115/68 (84) 92 Room Air 05/11/17 07:10 Room Air 05/10/17 23:30 92 Room Air 05/10/17 23:20 36.6 74 16 107/66 (80) 92 Room Air Lab Results: Results Past 24 Hours Test 05/11/17 08:57 05/11/17 18:01 Range/Units White Blood Count 4.76 4.8-10.8 K/uL Red Blood Count 4.17 4.7-6.1 M/uL Hemoglobin 12.4 14.0-18.0 g/dL Hematocrit 37.4 42-52 % Mean Corpuscular Volume 89.7 80-100 fL Mean Corpuscular Hemoglobin 29.7 25-34 pg Mean Corpuscular Hemoglobin Concent 33.2 32-36 g/dl Platelet Count 153 130-400 K/uL Mean Platelet Volume 9.1 7.4-10.4 fL Neutrophils (%) (Auto) 68.7 % Lymphocytes (%) (Auto) 16.6 % Monocytes (%) (Auto) 10.9 % Eosinophils (%) (Auto) 3.4 % Basophils (%) (Auto) 0.2 % Neutrophils # (Auto) 3.27 1.4-6.5 K/uL Lymphocytes # (Auto) 0.79 1.2-3.4 K/uL Monocytes # (Auto) 0.52 0.11-0.59 K/uL Eosinophils # (Auto) 0.16 0-0.5 K/uL Basophils # (Auto) 0.01 0-0.2 K/uL RDW Standard Deviation 51.0 36.4-46.3 fL RDW Coefficient of Variation 15.4 11.5-14.5 % Immature Granulocyte % (Auto) 0.2 % Immature Granulocyte # (Auto) 0.01 0.00-0.02 K/uL Prothrombin Time 28.3 9.0-12.0 SECONDS Prothromb Time International Ratio 2.7 0.9-1.1 Sodium Level 135 136-145 mmol/L Potassium Level 2.6 3.5-5.1 mmol/L Chloride Level 101 98-107 mmol/L Carbon Dioxide Level 24 21-32 mmol/L Anion Gap 10.0 3-11 mmol/L Blood Urea Nitrogen 59 7-18 mg/dl Creatinine 4.83 0.60-1.40 mg/dl Est Creatinine Clear Calc Drug Dose 23.4 ml/min Estimated GFR () 13.7 Estimated GFR (Non- 11.8 BUN/Creatinine Ratio 12.5 10-20 Random Glucose 116 70-99 mg/dl Calcium Level 9.2 8.5-10.1 mg/dl Total Bilirubin 0.6 0.2-1 mg/dl Aspartate Amino Transf (AST/SGOT) 11 15-37 U/L Alanine Aminotransferase (ALT/SGPT) 14 12-78 U/L Alkaline Phosphatase 75 45-117 U/L Total Protein 6.9 6.4-8.2 gm/dl Albumin 3.3 3.4-5.0 gm/dl Globulin 3.6 2.5-4.0 gm/dl Albumin/Globulin Ratio 0.9 0.9-2 Hepatitis B Surface Antigen NEG NEG Hepatitis B Surface Antibody NEG Microbiology Results 05/10/17 MRSA DNA Surveillance Screen - Final, Complete Specimen Negative for MRSA by DNA Probe
[2017-05-11] MEDS ORDERED: POTASSIUM CHLORIDE 20 MEQ TABCR PO STA (18:02)
[2017-05-11] MEDS: WARFARIN SOD 10 MG TAB PO SCH (18:57)
[2017-05-11] MEDS: HEPARIN SOD (PORCINE) 1000 UNIT/ML 10 ML VIAL IV SCH ×2 (19:13→19:14)
[2017-05-11] MEDS: POLYETHYLENE (MIRALAX) 17 GM PACK PO SCH (20:40)
[2017-05-11] MEDS: SIMVASTATIN 20 MG TAB PO SCH (20:41)
[2017-05-11] MEDS: GABAPENTIN 100 MG CAP PO SCH (20:41)
[2017-05-11] MEDS: RANITIDINE HCL 150 MG TAB PO SCH (20:49)
[2017-05-11 21:45] LABS: CALCIUM 8.1 mg/dl (8.5-10.1); CREATININE 3.28 mg/dl (0.60-1.40); POTASSIUM 2.6 mmol/L (3.5-5.1)
[2017-05-11] MEDS: POTASSIUM CHLORIDE 20 MEQ TABCR PO STA ×2 (22:43→23:25)
[2017-05-12 07:17] VITALS: BP 95/58; PULSE 86; TEMP 36.6; O2SAT 92
--- NOTE | 2017-05-12 07:29 | DIAGNOSTIC IMAGING REPORT ---
KUB HISTORY: Follow-up study in a patient with ileus hx recal decompression, ileus, measure dilation if present COMPARISON: KUB 05/11/2017. FINDINGS: Rectal tube is redemonstrated with tip terminating likely within the tortuous sigmoid colon. Gas-filled distended colon is again seen measuring up to 8.7 cm transversely, previously 8.6 cm. No dilated small bowel loops identified. Moderate stool volume of the cecum. No urolith, pneumoperitoneum or pneumatosis identified. No organomegaly. Multilevel degenerative changes about the spine and pelvis. IMPRESSION: 1. Rectal tube is in place with distal tip terminating within the tortuous sigmoid colon. 2. Persistent gas-filled distended large bowel, unchanged from comparison. Electronically signed by: Norris Dinh M.D. 05/12/2017 7:28 AM Dictated Date/Time: 05/12/2017 7:23 AM
[2017-05-12 08:12] LABS: INR 3.1 (0.9-1.1)
[2017-05-12 08:25] LABS: ALBUMIN 2.9 gm/dl (3.4-5.0); CALCIUM 8.2 mg/dl (8.5-10.1); CREATININE 3.93 mg/dl (0.60-1.40); POTASSIUM 3.4 mmol/L (3.5-5.1); TOTAL PROTEIN 6.5 gm/dl (6.4-8.2)
[2017-05-12] MEDS: CARVEDILOL 3.125 MG TAB PO SCH ×2 (08:38→20:32)
[2017-05-12] MEDS: CALCIUM ACETATE 667MG GELCAP PO SCH ×3 (08:39→20:32)
[2017-05-12] MEDS: SENNA 8.6 MG TAB PO SCH (08:39)
[2017-05-12] MEDS: FERROUS SULFATE 325 MG TAB PO SCH (08:40)
[2017-05-12] MEDS: POLYETHYLENE (MIRALAX) 17 GM PACK PO SCH ×2 (08:40→20:31)
[2017-05-12] MEDS: GABAPENTIN 100 MG CAP PO SCH ×2 (08:40→20:31)
[2017-05-12] MEDS: MAGNESIUM OXIDE 400 MG TAB PO SCH (08:41)
[2017-05-12] MEDS: POTASSIUM CHLORIDE 10 MEQ TABCR PO SCH (09:32)
--- NOTE | 2017-05-12 09:37 | Nephrology Progress Note ---
Nephrology Progress Note Date of Service: May 12, 2017. Subjective had emergent bowel decompression yesterday; on clears; hungry; still some abd pain Objective Date Time Temp Pulse Resp B/P (MAP) Pulse Ox O2 Delivery O2 Flow Rate FiO2 05/12/17 07:17 36.6 86 18 95/58 (70) 92 Room Air 05/11/17 23:14 Room Air 05/11/17 22:46 36.6 83 18 113/71 (85) 93 Room Air 05/11/17 20:34 85 114/76 (89) 05/11/17 18:00 Room Air 05/11/17 18:00 36.7 84 16 107/72 (84) 92 Room Air 05/11/17 17:07 36.6 83 112/64 (80) 05/11/17 17:00 83 95/53 05/11/17 16:45 81 109/54 05/11/17 16:32 77 101/59 05/11/17 16:00 76 116/60 05/11/17 15:45 76 108/56 05/11/17 15:30 77 105/57 05/11/17 15:15 87 115/71 05/11/17 15:00 86 119/78 05/11/17 14:45 83 110/62 05/11/17 14:30 75 94/60 05/11/17 14:15 76 103/51 05/11/17 14:05 70 109/53 05/11/17 13:15 80 111/63 05/11/17 13:00 82 111/71 05/11/17 12:47 36.6 79 100/62 (75) 05/11/17 12:06 81 16 127/84 (98) 93 Room Air 05/11/17 11:51 87 16 129/75 (93) 92 Room Air 05/11/17 11:36 89 16 120/58 (78) 92 Room Air 05/11/17 09:23 36.7 92 20 113/85 (94) 94 Room Air Physical Exam: General Appearance: WD/WN, no apparent distress, + obese, + pertinent finding ( on RA very chatty) Eyes: EOMI ENT: normal ENT inspection Neck: supple Respiratory/Chest: lungs clear, no respiratory distress, + decreased breath sounds Cardiovascular: regular rate, rhythm, no edema Abdomen: normal bowel sounds, soft, not distended NT Extremities: + slow capillary refill, + pertinent finding (L leg atrophied mm) Neurologic/Psych: alert, normal mood/affect, oriented x 3 Skin: no jaundice, warm/dry, no rash Current Inpatient Medications Medications (Trade) Dose Ordered Sig/George Route Start Time Stop Time Status Last Admin Dose Admin Acetaminophen (Tylenol Tab) 650 mg Q4H PRN PO 05/10/17 08:45 06/09/17 08:44 Calcium Acetate (Phoslo Cap) 1,334 mg TID PO 05/10/17 10:00 06/09/17 09:59 05/12/17 08:39 1,334 MG Carvedilol (Coreg Tab) 3.125 mg BID PO 05/10/17 11:00 06/09/17 10:59 05/11/17 20:42 3.125 MG Warfarin Sodium (Coumadin Tab) 7.5 mg SuTuThSa@1600 PO 05/10/17 16:00 06/09/17 15:59 05/10/17 15:44 7.5 MG Warfarin Sodium (Coumadin Tab) 10 mg MoWeFr@1600 PO 05/11/17 16:00 06/10/17 15:59 05/11/17 18:57 10 MG Methylnaltrexone [place] (Relistor Inj) 12 mg Q2D@1600 SQ 05/11/17 16:00 06/10/17 15:59 05/11/17 18:57 12 MG Senna (Senokot Tab) 8.6 mg QAM PO 05/12/17 09:00 06/11/17 08:59 Polyethylene (Miralax Powder Packet) 17 gm BID PO 05/11/17 21:00 06/10/17 16:59 05/12/17 08:40 17 GM Folic Acid (Folvite Tab) 1 mg QAM PO 05/12/17 09:00 06/11/17 08:59 05/12/17 08:40 1 MG Gabapentin (Neurontin Cap) 200 mg BID PO 05/11/17 21:00 06/10/17 20:59 05/12/17 08:40 200 MG Magnesium Oxide (Mag-Ox Tab) 400 mg QAM PO 05/12/17 09:00 06/11/17 08:59 3/10/18 08:41 400 MG Ranitidine HCl (zANTac TAB) 150 mg QPM PO 05/11/17 21:00 06/10/17 20:59 Simvastatin (Zocor Tab) 20 mg QPM PO 05/11/17 21:00 06/10/17 20:59 05/11/17 20:41 20 MG Ferrous Sulfate (Feosol Tab) 325 mg DAILY PO 05/12/17 09:00 06/11/17 08:59 05/12/17 08:40 325 MG Potassium Chloride (Klor-Con M10) 40 meq DAILY PO 05/12/17 09:00 06/11/17 08:59 UNV Last 24 Hours Test 05/11/17 08:57 05/11/17 18:09 05/11/17 21:16 05/12/17 07:45 White Blood Count 4.76 K/uL Red Blood Count 4.17 M/uL Hemoglobin 12.4 g/dL Hematocrit 37.4 % Mean Corpuscular Volume 89.7 fL Mean Corpuscular Hemoglobin 29.7 pg Mean Corpuscular Hemoglobin Concent 33.2 g/dl Platelet Count 153 K/uL Mean Platelet Volume 9.1 fL Neutrophils (%) (Auto) 68.7 % Lymphocytes (%) (Auto) 16.6 % Monocytes (%) (Auto) 10.9 % Eosinophils (%) (Auto) 3.4 % Basophils (%) (Auto) 0.2 % Neutrophils # (Auto) 3.27 K/uL Lymphocytes # (Auto) 0.79 K/uL Monocytes # (Auto) 0.52 K/uL Eosinophils # (Auto) 0.16 K/uL Basophils # (Auto) 0.01 K/uL RDW Standard Deviation 51.0 fL RDW Coefficient of Variation 15.4 % Immature Granulocyte % (Auto) 0.2 % Immature Granulocyte # (Auto) 0.01 K/uL Prothrombin Time 28.3 SECONDS 31.5 SECONDS Prothromb Time International Ratio 2.7 3.1 Sodium Level 135 mmol/L 134 mmol/L 136 mmol/L Potassium Level 2.6 mmol/L 2.6 mmol/L 2.6 mmol/L 3.4 mmol/L Chloride Level 101 mmol/L 99 mmol/L 102 mmol/L Carbon Dioxide Level 24 mmol/L 28 mmol/L 26 mmol/L Anion Gap 10.0 mmol/L 8.0 mmol/L 8.0 mmol/L Blood Urea Nitrogen 59 mg/dl 31 mg/dl 36 mg/dl Creatinine 4.83 mg/dl 3.28 mg/dl 3.93 mg/dl Est Creatinine Clear Calc Drug Dose 23.4 ml/min 33.5 ml/min 28.0 ml/min Estimated GFR () 13.7 21.8 17.5 Estimated GFR (Non- 11.8 18.8 15.1 BUN/Creatinine Ratio 12.5 9.5 9.3 Random Glucose 116 mg/dl 114 mg/dl 92 mg/dl Calcium Level 9.2 mg/dl 8.1 mg/dl 8.2 mg/dl Total Bilirubin 0.6 mg/dl 0.5 mg/dl Aspartate Amino Transf (AST/SGOT) 11 U/L 14 U/L Alanine Aminotransferase (ALT/SGPT) 14 U/L 12 U/L Alkaline Phosphatase 75 U/L 71 U/L Total Protein 6.9 gm/dl 6.5 gm/dl Albumin 3.3 gm/dl 2.9 gm/dl Globulin 3.6 gm/dl 3.6 gm/dl Albumin/Globulin Ratio 0.9 0.8 Hepatitis B Surface Antigen NEG Hepatitis B Surface Antibody NEG Magnesium Level 2.3 mg/dl Assessment & Plan 66 y/o M w/ ESRD on MWF HD, intractable lumbar pain w/ chronic osteomyelitis a/ w abdominal bloating w/ abd CT concerning for omental infarct versus diverticulitis; sx improved w/ IV abtx. ESRD Blood pressures/HR, anemia status, electrolytes (apart from K) and volume status acceptable > next HD on 05/14 or as clinical status dictates, likely on 4K bath Hypokalemia -had 80 mEq po x 2 doses yesterday >> gave another 40 mEq this am >daily bmp >needs low phos but NOT low K diet Abd pain/bloating > s/p emergent colonoscopic decompression; no diverticulitis; impaction a possible dx and some suggestion of volvulus on exam -per primary service and GI Appreciate consult; will follow with you.
[2017-05-12 15:01] VITALS: BP 113/76; PULSE 88; TEMP 37.1; O2SAT 93
[2017-05-12] MEDS: WARFARIN SOD 7.5 MG TAB PO SCH (15:27)
--- NOTE | 2017-05-12 15:40 | Progress Note ---
Internal Med Progress Note Date of Service: May 12, 2017. Provider Documentation: SUBJECTIVE: Patient seen at bedside. Reports abdominal symptoms better but still some left side abdominal pain still present OBJECTIVE: Exam: General-no acute distress Eyes- EOMI Neck- trachea midline, no JVD Lungs- CTABL Heart- Regular rate Abdomen- truncal obesity, less distended today, still some tenderness on palpable of left side of the abdomen Extremities- no edema, patient can move left leg but not as strong as right leg Neuro- awake and alert ASSESSMENT & PLAN: Admitted for abdominal pain, diarrhea, and found to have dilated sigmoid colon and possible volvulus 05/11/17 patient s/p colonoscopy and decompression with rectal tube; several areas of twisting or narrowing, suggestive of volvulus; no evidence of mucosal ischemia, antibiotics can be stopped as no evidence of inflammation and patient can have diet advanced and laxative regimen - Miralax BID, Senna, Relistor.as per gastroenterology service follow up KUB 05/12/17 1. Rectal tube is in place with distal tip terminating within the tortuous sigmoid colon. 2. Persistent gas-filled distended large bowel, unchanged from comparison Minimize narcotics to avoid ileus Chronic destructive change at the L2-L3 disc space level: chronic discitis/ osteomyelitis as per radiology read. patient does report history of spinal surgery in the past but resulting complications led to the hardware removed and subsequently with relative left leg immobility -admission blood cultures no growth to date, patient without evidence for sepsis ESRD on dialysis M/W/F through left arm fistula -continue calcium acetate -received dialysis on 05/11/17 -resume iron Electrolytes has been having hypokalemia from dialysis and diarrhea patient has received potassium supplements, expect serum potassium to also increase due to ESRD health condition Urination: patient reports urination despite being on dialysis, denies recent urinary symptoms Morbid Obesity with BMI 43, on statin Patient denies history of diabetes but this has been listed as problem list on outpatient records - is not on medications for diabetes, HbA1c 5.8, serum glucose normal in the hospital Continue Coumadin and low dose carvedilol for history of atrial fibrillation DVT ppx - patient is anticoagulated on warfarin for history of atrial fibrillation, INR is 3.1 on 05/12/17, INR supratherapeutic likely from reduced oral intake recently, will continue Coumadin as patient now back to a solid diet and check INR tomorrow FULL Code Status sister Keely [phone] Vital Signs: Date Time Temp Pulse Resp B/P (MAP) Pulse Ox O2 Delivery O2 Flow Rate FiO2 05/12/17 15:01 37.1 88 20 113/76 (88) 93 Room Air 05/12/17 07:50 Room Air 05/12/17 07:17 36.6 86 18 95/58 (70) 92 Room Air 05/11/17 23:14 Room Air 05/11/17 22:46 36.6 83 18 113/71 (85) 93 Room Air 05/11/17 20:34 85 114/76 (89) 05/11/17 18:00 Room Air 05/11/17 18:00 36.7 84 16 107/72 (84) 92 Room Air 05/11/17 17:07 36.6 83 112/64 (80) 05/11/17 17:00 83 95/53 05/11/17 16:45 81 109/54 05/11/17 16:32 77 101/59 05/11/17 16:00 76 116/60 Lab Results: Results Past 24 Hours Test 05/11/17 18:09 05/11/17 21:16 05/12/17 07:45 Range/Units Potassium Level 2.6 2.6 3.4 3.5-5.1 mmol/L Sodium Level 134 136 136-145 mmol/L Chloride Level 99 102 98-107 mmol/L Carbon Dioxide Level 28 26 21-32 mmol/L Anion Gap 8.0 8.0 3-11 mmol/L Blood Urea Nitrogen 31 36 7-18 mg/dl Creatinine 3.28 3.93 0.60-1.40 mg/dl Est Creatinine Clear Calc Drug Dose 33.5 28.0 ml/min Estimated GFR () 21.8 17.5 Estimated GFR (Non- 18.8 15.1 BUN/Creatinine Ratio 9.5 9.3 10-20 Random Glucose 114 92 70-99 mg/dl Calcium Level 8.1 8.2 8.5-10.1 mg/dl Prothrombin Time 31.5 9.0-12.0 SECONDS Prothromb Time International Ratio 3.1 0.9-1.1 Magnesium Level 2.3 1.8-2.4 mg/dl Total Bilirubin 0.5 0.2-1 mg/dl Aspartate Amino Transf (AST/SGOT) 14 15-37 U/L Alanine Aminotransferase (ALT/SGPT) 12 12-78 U/L Alkaline Phosphatase 71 45-117 U/L Total Protein 6.5 6.4-8.2 gm/dl Albumin 2.9 3.4-5.0 gm/dl Globulin 3.6 2.5-4.0 gm/dl Albumin/Globulin Ratio 0.8 0.9-2
[2017-05-12 20:30] VITALS: BP 98/59; PULSE 89
[2017-05-12] MEDS: SIMVASTATIN 20 MG TAB PO SCH (20:31)
[2017-05-12] MEDS: RANITIDINE HCL 150 MG TAB PO SCH (20:31)
[2017-05-12 23:06] VITALS: BP 102/68; PULSE 73; TEMP 36.8; O2SAT 94
[2017-05-13 06:46] LABS: INR 3.3 (0.9-1.1)
[2017-05-13 07:20] VITALS: BP 120/79; PULSE 79; TEMP 36.3; O2SAT 94
[2017-05-13 07:36] LABS: ALBUMIN 2.8 gm/dl (3.4-5.0); CREATININE 4.98 mg/dl (0.60-1.40); POTASSIUM 3.1 mmol/L (3.5-5.1); TOTAL PROTEIN 6.4 gm/dl (6.4-8.2)
[2017-05-13] MEDS ORDERED: POTASSIUM CHLORIDE 20 MEQ TABCR PO STA (08:00)
[2017-05-13] MEDS: CALCIUM ACETATE 667MG GELCAP PO SCH ×3 (09:00→20:58)
[2017-05-13] MEDS: SENNA 8.6 MG TAB PO SCH (09:00)
[2017-05-13 09:39] VITALS: BP 121/76; PULSE 86
[2017-05-13] MEDS: POTASSIUM CHLORIDE 10 MEQ TABCR PO SCH (09:41)
[2017-05-13] MEDS: GABAPENTIN 100 MG CAP PO SCH ×2 (09:42→21:00)
[2017-05-13] MEDS: POLYETHYLENE (MIRALAX) 17 GM PACK PO SCH ×2 (09:42→20:59)
[2017-05-13] MEDS: MAGNESIUM OXIDE 400 MG TAB PO SCH (09:43)
[2017-05-13] MEDS: FERROUS SULFATE 325 MG TAB PO SCH (09:44)
[2017-05-13] MEDS: CARVEDILOL 3.125 MG TAB PO SCH ×2 (09:44→21:01)
--- NOTE | 2017-05-13 10:44 | DIAGNOSTIC IMAGING REPORT ---
KUB CLINICAL HISTORY: Abdominal distention COMPARISON STUDY: 05/12/2017 FINDINGS: There is an enteric decompression tube which appears redundantly coiled within the sigmoid. The tip projects over the distal sigmoid. There is progressive dilatation of the sigmoid which measures 11.7 cm. IMPRESSION: The rectal tube appears less advanced than on the prior study. The tube appears redundantly coiled within the sigmoid. There is progressive sigmoid dilatation currently measuring 11.7 cm Electronically signed by: Balwinder Matamoros M.D. 05/13/2017 10:42 AM Dictated Date/Time: 05/13/2017 10:39 AM
--- NOTE | 2017-05-13 14:43 | Progress Note ---
Progress Note Date of Service May 13, 2017. Progress Note Pt with mild persistent LLQ discomfort. Ayad PO. BM x 2 overnight, passing flatus. He feels like his abd distention is at baseline, and has not worsened since yesterday He is comfortable, sleeping. Abd is mod distended but soft and obviously improved from admission, with mild central tympany. He does have BS. He is tender to deep palpation in LLQ. Labs show mild hypoK. AXR shows slippage of rectal tube. There is increased sigmoid dilation. There is no prox colon dilation. I reviewed KUB with Dr. Matamoros who did not think that this was a volvulus, due to lack of prox colon dilation. A/P: I suspect that his constipation is chronic -ie, that he has chronic megarectum/ megacolon. Although he has no prior imaging to review, he describes chronic bloating and what sounds like chronic overflow diarrhea, he appears to tolerate large colon volumes without difficulty, and has multiple risk fx for chronic megarectum. His acute presentation earlier may have been due to impaction or possibly from volvulus. At this time, he is stooling and tolerating his current degree of distention quite well. There is no need for repeat decompression. Can d/c rectal tube. Cont low res diet. He likely would benefit from bowel regimen as outpt - senna qD to qOD, miralax 2 -3 x daily, scheduled enemas 2-3 x a week to prevent impaction. Would d/c iron - he is not anemic, and this likely will aggravate constipation. Can d/c Relistor as inpt, as he is no longer taking narcotics. He is ok for d/c home. No need for scheduled GI f/u, but please call us with questions.
--- NOTE | 2017-05-13 15:27 | Surgery Consultation ---
Consultation Date of Consultation: May 13, 2017. Attending Physician: Stiven Mo M.D. History of Present Illness This is a 66 year old Male who resides in [facility] on dialysis M/W/F, history of atrial fibrillation on coumadin, history of back surgery with subsequent complications and left leg immobility, ambulates with wheelchair, morbid obesity, who reports bloating x 3 nights and chronic diarrhea. Patient denies recent antibiotic use. Denies vomiting or fever. Patient makes urine and denies urinary symptoms. Reports that he is not really passing gas but is make bowel movements as diarrhea. Also having left sided abdominal tenderness with the bloating sensation x [address] abdomen results concerning for abdominal bowel distention (dilated colon vs diverticulitis). Patient was ordered Ciprofloxacin and Metronidazole in the ED and GI consult pending with admission to hospitalist medicine service. I GOT A CALL CONSULT FOR COLON DIALATION, I REVIEWED PT'S h/p WITH PT, PT DENIES ABDOMINAL PAIN, no nausea, no vomiting, last BM yesterday. Past Medical/Surgical History Medical Problems: (1) Anemia Status: Chronic (2) Hypokalemia Status: Acute (3) Intractable low back pain Status: Acute (4) Lumbar disc disease Status: Acute (5) Osteomyelitis of lumbar spine Status: Acute Family History Diabetes mellitus MOTHER FH: lung disease FATHER Social History Smoking Status: Never Smoker Smokeless Tobacco Use: No Alcohol Use: occasionally Drug Use: none Marital Status: single Housing Status: lives alone Occupation Status: disabled Allergies Coded Allergies: No Known Allergies (Verified , 11/30/15) Home Medications Scheduled Acetaminophen (Tylenol), 650 MG PO DAILY Calcium Acetate (Phoslo 667 Mg), 2 CAPSULES PO WM Carvedilol (Coreg), 0.5 TAB PO BID 4XWEEKLY Carvedilol (Coreg), 0.5 TAB PO DAILY 3XWEEKLY Clindamycin Hcl (Cleocin), 300 MG PO DAILY Ferrous Sulfate (Kp Ferrous Sulfate), 325 MG PO DAILY Folic Acid (Folic Acid), 1 MG PO QAM Gabapentin (Gabapentin), 200 MG PO BID Levofloxacin (Levaquin), 250 MG PO Q2D Lidocaine-Prilocaine (Lidocaine/Prilocaine), 1 APPLN TOP UD Magnesium Oxide (Mag-Ox), 400 MG PO QAM Menthol-Zinc Oxide (Calmoseptine), 1 APPLN TD TID Oxycodone Hcl (Oxycodone Hcl), 15 MG PO QAM Oxycodone Ir (Roxicodone Ir), 5 MG PO 3XWK Pantoprazole (Protonix), 40 MG PO BID Ranitidine (Zantac), 150 MG PO QPM Simvastatin (Zocor), 20 MG PO QPM Skin Protectants, Misc. (Hydrocerin), 1 APPLN TD DAILY Warfarin Sod (Coumadin), 7.5 MG PO DAILY Warfarin Sod (Coumadin), 2.5 MG PO 3XWK [Antacid With Simethi], Unknown Dose PO UD Scheduled PRN Acetaminophen Tab (Tylenol), 650 MG PO Q4H PRN for Pain or Fever Current Inpatient Medications Current Inpatient Medications Medications (Trade) Dose Ordered Sig/George Route Start Time Stop Time Status Last Admin Dose Admin Acetaminophen (Tylenol Tab) 650 mg Q4H PRN PO 05/10/17 08:45 06/09/17 08:44 Calcium Acetate (Phoslo Cap) 1,334 mg TID PO 05/10/17 10:00 06/09/17 09:59 05/13/17 12:49 1,334 MG Carvedilol (Coreg Tab) 3.125 mg BID PO 05/10/17 11:00 06/09/17 10:59 05/13/17 09:44 3.125 MG Warfarin Sodium (Coumadin Tab) 7.5 mg SuTuThSa@1600 PO 05/10/17 16:00 06/09/17 15:59 Future Hold 05/12/17 15:27 7.5 MG Warfarin Sodium (Coumadin Tab) 10 mg MoWeFr@1600 PO 05/11/17 16:00 06/10/17 15:59 05/11/17 18:57 10 MG Senna (Senokot Tab) 8.6 mg QAM PO 05/12/17 09:00 06/11/17 08:59 Polyethylene (Miralax Powder Packet) 17 gm BID PO 05/11/17 21:00 06/10/17 16:59 05/13/17 09:42 17 GM Folic Acid (Folvite Tab) 1 mg QAM PO 05/12/17 09:00 06/11/17 08:59 05/13/17 09:43 1 MG Gabapentin (Neurontin Cap) 200 mg BID PO 05/11/17 21:00 06/10/17 20:59 05/13/17 09:42 200 MG Magnesium Oxide (Mag-Ox Tab) 400 mg QAM PO 05/12/17 09:00 06/11/17 08:59 05/13/17 09:43 400 MG Ranitidine HCl (zANTac TAB) 150 mg QPM PO 05/11/17 21:00 06/10/17 20:59 05/12/17 20:31 150 MG Simvastatin (Zocor Tab) 20 mg QPM PO 05/11/17 21:00 06/10/17 20:59 05/12/17 20:31 20 MG Potassium Chloride (Klor-Con M10) 40 meq DAILY PO 05/12/17 09:00 06/11/17 08:59 05/13/17 09:41 40 MEQ Warfarin Sodium (Coumadin Tab) 5 mg TODAY@1600 ONCE PO 05/13/17 16:00 05/13/17 16:01 Review of Systems Constitutional: No fever, No chills, No sweats, No weight loss, No weakness, No fatigue, No problem reported Eyes: No worsening of vision, No eye pain, No redness, No discharge, No diplopia, No problem reported ENT: No hearing loss, No unusual epistaxis, No nasal symptoms, No sore throat, No tinnitus, No dental problems, No trouble swallowing, No problem reported Respiratory: No cough, No sputum, No wheezing, No shortness of breath, No dyspnea on exertion, No dyspnea at rest, No hemoptysis, No problem reported Cardiovascular: + problem reported (A-fib), No chest pain, No orthopnea, No PND , No edema, No claudication, No palpitations Abdomen: + diarrhea Musculoskeletal: + problem reported (Back surgery with compilcation, disfunction of left leg, ) Neurologic: No memory loss, No paralysis, No weakness, No numbness/tingling, No vertigo, No balance problems, No problem reported Psychiatric: No depression symptoms, No anhedonism, No anxiety, No insomnia, No substance abuse, No problem reported Endocrine: No fatigue, No excessive thirst, No excessive urination, No problem reported Hematologic / Lymphatic: No abnormal bleeding/bruising, No clotting problems, No swollen lymph nodes, No night sweats, No problem reported Physical Exam Date Time Temp Pulse Resp B/P (MAP) Pulse Ox O2 Delivery O2 Flow Rate FiO2 05/13/17 09:39 86 121/76 (91) 05/13/17 07:20 36.3 79 19 120/79 (93) 94 Room Air 05/13/17 07:15 Room Air 05/12/17 23:20 Room Air 05/12/17 23:06 36.8 73 16 102/68 (79) 94 Room Air 05/12/17 20:30 89 98/59 (72) General Appearance: WD/WN, no apparent distress Head: normocephalic Eyes: normal inspection ENT: normal ENT inspection Neck: supple, no JVD Respiratory/Chest: chest non-tender, lungs clear, normal breath sounds Cardiovascular: no edema, no JVD, no murmur, + irregularly irregular Abdomen/GI: normal bowel sounds, non tender, soft, no organomegaly, no pulsatile mass (obesity) Extremities/Musculoskelatal: normal inspection, no calf tenderness, normal capillary refill Neurologic/Psych: no motor/sensory deficits, alert, normal mood/affect, oriented x 3 Skin: normal color, warm/dry, no rash Lymphatic: no adenopathy Laboratory Results Last 24 Hours Test 05/13/17 06:02 Prothrombin Time 33.9 SECONDS Prothromb Time International Ratio 3.3 Sodium Level 136 mmol/L Potassium Level 3.1 mmol/L Chloride Level 104 mmol/L Carbon Dioxide Level 23 mmol/L Anion Gap 9.0 mmol/L Blood Urea Nitrogen 52 mg/dl Creatinine 4.98 mg/dl Est Creatinine Clear Calc Drug Dose 22.1 ml/min Estimated GFR () 13.2 Estimated GFR (Non- 11.4 BUN/Creatinine Ratio 10.5 Random Glucose 88 mg/dl Calcium Level 8.0 mg/dl Total Bilirubin 0.5 mg/dl Aspartate Amino Transf (AST/SGOT) 12 U/L Alanine Aminotransferase (ALT/SGPT) 13 U/L Alkaline Phosphatase 69 U/L Total Protein 6.4 gm/dl Albumin 2.8 gm/dl Globulin 3.6 gm/dl Albumin/Globulin Ratio 0.8 Assessment & Plan CT scan-FINDINGS: The lung bases are essentially clear. No pneumoperitoneum. No pneumatosis. Mild sclerosis of the bilateral femoral heads. This could represent avascular necrosis. Evidence for prior posterior decompression from L3 through L5. No significant change in the destructive process at the L2-L3 disc space. Slight increase in the 8 mm of retrolisthesis of L2 on L3. This results in moderate to severe central canal narrowing at this level. This is relatively stable dating back to the 07/13/2015 lumbar spine MRI. Cholelithiasis. The unenhanced liver, spleen, adrenal glands, and pancreas are unremarkable. No retroperitoneal lymphadenopathy. Normal bladder. Distended gas and stool-filled colon. This most pronounced at the sigmoid colon which measures 10 cm in diameter. Normal appendix. The small bowel is normal in course and caliber. Focal area of inflammatory change seen within the left anterior abdomen. This is best seen on image 289. A few scattered colonic diverticula. IMPRESSION: 1. Focal area of inflammatory change seen within the left anterior abdomen. This favors an omental infarct or epiploic appendagitis. However, a diverticulitis could also have a similar appearance. 2. Distended gas and stool-filled colon. This favors an ileus. No evidence for bowel obstruction. 3. Cholelithiasis. 4. Chronic destructive change at the L2-L3 disc space level. This favors a chronic discitis/osteomyelitis. KUB-FINDINGS: There is an enteric decompression tube which appears redundantly coiled within the sigmoid. The tip projects over the distal sigmoid. There is progressive dilatation of the sigmoid which measures 11.7 cm. IMPRESSION: The rectal tube appears less advanced than on the prior study. The tube appears redundantly coiled within the sigmoid. There is progressive sigmoid dilatation currently measuring 11.7 cm Assessment: pt is a 66 year old male who was admitted to hospital for sigmoid colon dilatation, S/P colonoscopy with rectal tube, IMP: colon dilatation no indication of emergent surgery now. I recommend to consult colorectal surgeon for further Dx and treatment, pt said his Mom had colon resection , and his mom after surgery. pt dose not want to do any surgery now, pt can see colorectal surgery out-patient, sign off today please call with questions or concern. Thanks,
[2017-05-13 15:51] VITALS: BP 110/68; PULSE 76; TEMP 36.7; O2SAT 94
[2017-05-13] MEDS ORDERED: WARFARIN SOD 5 MG TAB PO ONE (16:00)
--- NOTE | 2017-05-13 16:26 | Progress Note ---
Internal Med Progress Note Date of Service: May 13, 2017. Provider Documentation: SUBJECTIVE: Patient seen at bedside. Reports still some left side abdominal pain still present and he had passed stool through the rectal tube. KUB reviewed and GI and surgery doctors spoke with patient OBJECTIVE: Exam: General-no acute distress Eyes- EOMI Neck- trachea midline, no JVD Lungs- CTABL Heart- Regular rate Abdomen- truncal obesity, less distended today, still some tenderness on palpable of left side of the abdomen Extremities- no edema Neuro- awake and alert ASSESSMENT & PLAN: Admitted for abdominal pain, diarrhea, and found to have dilated sigmoid colon and possible volvulus 05/11/17 patient s/p colonoscopy and decompression with rectal tube; several areas of twisting or narrowing, suggestive of volvulus; no evidence of mucosal ischemia, antibiotics can be stopped as no evidence of inflammation and patient can have diet advanced and laxative regimen - Miralax BID, Senna, Relistor.as per gastroenterology service recent KUB 05/13/17: dilatation of the sigmoid which measures 11.7 cm was larger than previous on earlier KUB after rectal tube was placed Gastroenterology and general surgery saw patient on 05/13/17 and no acute procedures at this time -Gastroenterology: describes current features as part of chronic megarectum/ megacolon and that previous acute presentation earlier may have been due to impaction or possibly from volvulus; discontinue rectal tube, discontinue Relistor, discontinue iron , continue low residue diet, bowel regimen as outpatient should be senna qD to qOD, miralax 2-3 x daily, scheduled enemas 2-3 x a week to prevent impaction. -General surgery service does not recommend surgery now and recommends colorectal surgery referral as outpatient Chronic destructive change at the L2-L3 disc space level: chronic discitis/ osteomyelitis as per radiology read. patient does report history of spinal surgery in the past but resulting complications led to the hardware removed and subsequently with relative left leg immobility -admission blood cultures no growth to date, patient without evidence for sepsis ESRD on dialysis M/W/F through left arm fistula -continue calcium acetate -received dialysis on 05/11/17 -hold iron as per GI to prevent constipation Electrolytes has been having hypokalemia from dialysis and diarrhea patient has received potassium supplements Urination: patient reports urination despite being on dialysis, denies recent urinary symptoms Morbid Obesity with BMI 43, on statin Patient denies history of diabetes but this has been listed as problem list on outpatient records - is not on medications for diabetes, HbA1c 5.8, serum glucose normal in the hospital Continue Coumadin and low dose carvedilol for history of atrial fibrillation DVT ppx - patient is anticoagulated on warfarin for history of atrial fibrillation, INR is 3.3 on 05/13/17, INR supratherapeutic likely from reduced oral intake recently, give reduce dose of coumadin today FULL Code Status sister Keely [phone] Disposition: as per the evaluations of Gastroenterology and General surgery patient can be discharged for the abdominal issues however patient will need transport services to [facility] which may require special transport because of his large size and weight, and also should not miss his dialysis session which is next due for Sunday05/14/17 - if dialysis cannot be set up as per usual outpatient center then patient should receive dialysis in the hospital before leaving on Sunday05/14/17, INR is also mildly supra therapeutic and can be rechecked tomorrow Vital Signs: Date Time Temp Pulse Resp B/P (MAP) Pulse Ox O2 Delivery O2 Flow Rate FiO2 05/13/17 15:51 36.7 76 19 110/68 (82) 94 Room Air 05/13/17 09:39 86 121/76 (91) 05/13/17 07:20 36.3 79 19 120/79 (93) 94 Room Air 05/13/17 07:15 Room Air 05/12/17 23:20 Room Air 05/12/17 23:06 36.8 73 16 102/68 (79) 94 Room Air 05/12/17 20:30 89 98/59 (72) Lab Results: Results Past 24 Hours Test 05/13/17 06:02 Range/Units Prothrombin Time 33.9 9.0-12.0 SECONDS Prothromb Time International Ratio 3.3 0.9-1.1 Sodium Level 136 136-145 mmol/L Potassium Level 3.1 3.5-5.1 mmol/L Chloride Level 104 98-107 mmol/L Carbon Dioxide Level 23 21-32 mmol/L Anion Gap 9.0 3-11 mmol/L Blood Urea Nitrogen 52 7-18 mg/dl Creatinine 4.98 0.60-1.40 mg/dl Est Creatinine Clear Calc Drug Dose 22.1 ml/min Estimated GFR () 13.2 Estimated GFR (Non- 11.4 BUN/Creatinine Ratio 10.5 10-20 Random Glucose 88 70-99 mg/dl Calcium Level 8.0 8.5-10.1 mg/dl Total Bilirubin 0.5 0.2-1 mg/dl Aspartate Amino Transf (AST/SGOT) 12 15-37 U/L Alanine Aminotransferase (ALT/SGPT) 13 12-78 U/L Alkaline Phosphatase 69 45-117 U/L Total Protein 6.4 6.4-8.2 gm/dl Albumin 2.8 3.4-5.0 gm/dl Globulin 3.6 2.5-4.0 gm/dl Albumin/Globulin Ratio 0.8 0.9-2
[2017-05-13] MEDS: RANITIDINE HCL 150 MG TAB PO SCH (21:00)
[2017-05-13] MEDS: SIMVASTATIN 20 MG TAB PO SCH (21:00)
[2017-05-13 23:31] VITALS: BP 116/78; PULSE 82; TEMP 36.3; O2SAT 91
[2017-05-14] VITALS (20 sets, daily range): BP systolic 114–148; BP diastolic 62–91; PULSE 75–95; TEMP 36.8–37.1; O2SAT 91–94
--- NOTE | 2017-05-14 06:28 | Nephrology Progress Note ---
Nephrology Progress Note Date of Service: May 14, 2017. Subjective 66 yo male with esrd who presented with colonic distention and required colonic decompression. doing much better. comfortable. abdomen significantly less distended. did require large amount of potassium repletion. Objective Date Time Temp Pulse Resp B/P (MAP) Pulse Ox O2 Delivery O2 Flow Rate FiO2 05/13/17 23:35 Room Air 05/13/17 23:31 36.3 82 16 116/78 (91) 91 Room Air 05/13/17 15:51 36.7 76 19 110/68 (82) 94 Room Air 05/13/17 15:45 Room Air 05/13/17 09:39 86 121/76 (91) 05/13/17 07:20 36.3 79 19 120/79 (93) 94 Room Air 05/13/17 07:15 Room Air Physical Exam: General-aaox3, obese Eyes-no scleral icterus ENT-mmm Neck-supple Lungs-cta Heart-rrr Abdomen-less distended, tympanitic, non-tender Extremities-no c/c/e Neuro-nonfocal Current Inpatient Medications Medications (Trade) Dose Ordered Sig/George Route Start Time Stop Time Status Last Admin Dose Admin Acetaminophen (Tylenol Tab) 650 mg Q4H PRN PO 05/10/17 08:45 06/09/17 08:44 Calcium Acetate (Phoslo Cap) 1,334 mg TID PO 05/10/17 10:00 06/09/17 09:59 05/13/17 12:49 1,334 MG Carvedilol (Coreg Tab) 3.125 mg BID PO 05/10/17 11:00 06/09/17 10:59 05/13/17 21:01 3.125 MG Warfarin Sodium (Coumadin Tab) 7.5 mg SuTuThSa@1600 PO 05/10/17 16:00 06/09/17 15:59 Future Hold 05/12/17 15:27 7.5 MG Warfarin Sodium (Coumadin Tab) 10 mg MoWeFr@1600 PO 05/11/17 16:00 06/10/17 15:59 05/11/17 18:57 10 MG Senna (Senokot Tab) 8.6 mg QAM PO 05/12/17 09:00 06/11/17 08:59 Polyethylene (Miralax Powder Packet) 17 gm BID PO 05/11/17 21:00 06/10/17 16:59 05/13/17 20:59 17 GM Folic Acid (Folvite Tab) 1 mg QAM PO 05/12/17 09:00 06/11/17 08:59 05/13/17 09:43 1 MG Gabapentin (Neurontin Cap) 200 mg BID PO 05/11/17 21:00 06/10/17 20:59 05/13/17 21:00 200 MG Magnesium Oxide (Mag-Ox Tab) 400 mg QAM PO 05/12/17 09:00 06/11/17 08:59 05/13/17 09:43 400 MG Ranitidine HCl (zANTac TAB) 150 mg QPM PO 05/11/17 21:00 06/10/17 20:59 05/13/17 21:00 150 MG Simvastatin (Zocor Tab) 20 mg QPM PO 05/11/17 21:00 06/10/17 20:59 05/13/17 21:00 20 MG Potassium Chloride (Klor-Con M10) 40 meq DAILY PO 05/12/17 09:00 06/11/17 08:59 05/13/17 09:41 40 MEQ Heparin Sodium (Porcine) (Heparin Iv Bolus) 1,000 unit ONE IV 05/14/17 08:00 05/14/17 08:01 Heparin Sodium (Porcine) (Heparin Iv Bolus) 400 unit Q1H IV 05/14/17 08:00 05/14/17 10:01 Last 24 Hours Test 05/14/17 05:47 Date/Time Source Procedure Growth Status 05/13/17 21:55 Stool C.difficile Toxin B Gene (PCR) - Final No C. difficile toxin B gene detected Complete 05/13/17 21:55 Stool WBC Smear Pending Received 05/13/17 21:55 Stool Shiga Toxin Test Pending Received 05/13/17 21:55 Stool Stool Culture Pending Received Assessment & Plan ESRD-for dialysis today on a 4k bath and will need to follow potassium levels closely at the dialysis unit. likely lost potassium through massive GI losses which have calmed down. ok from renal perspective to go home today after dialysis.
[2017-05-14 06:47] LABS: INR 2.9 (0.9-1.1)
[2017-05-14] MEDS: CALCIUM ACETATE 667MG GELCAP PO SCH ×2 (07:23→14:28)
[2017-05-14] MEDS ORDERED: HEPARIN SOD (PORCINE) 1000 UNIT/ML 10 ML VIAL IV SCH (08:00)
[2017-05-14] MEDS: HEPARIN SOD (PORCINE) 1000 UNIT/ML 10 ML VIAL IV SCH ×3 (08:00→10:00)
[2017-05-14] MEDS: POTASSIUM CHLORIDE 10 MEQ TABCR PO SCH (08:16)
[2017-05-14] MEDS: MAGNESIUM OXIDE 400 MG TAB PO SCH (08:16)
[2017-05-14] MEDS: GABAPENTIN 100 MG CAP PO SCH (08:16)
[2017-05-14] MEDS: CARVEDILOL 3.125 MG TAB PO SCH (08:16)
[2017-05-14] MEDS: SENNA 8.6 MG TAB PO SCH (08:16)
[2017-05-14] MEDS: POLYETHYLENE (MIRALAX) 17 GM PACK PO SCH (08:17)
--- NOTE | 2017-05-14 15:45 | Progress Note ---
Internal Med Progress Note Date of Service: May 14, 2017. Provider Documentation: SUBJECTIVE: INR 2.9 today. Patient seen at dialysis. Patient reports no problems with bowel movements and left sided abdominal pain is better. Patient understands he is to be discharged after dialysis OBJECTIVE: Exam: General-no acute distress Eyes- EOMI Neck- trachea midline, no JVD Lungs- CTABL Heart- Regular rate Abdomen- truncal obesity, mild tenderness on palpable of left side of the abdomen Extremities- no edema Neuro- awake and alert ASSESSMENT & PLAN: Hospital Course and Discharge instructions Admitted for abdominal pain, diarrhea, and found to have dilated sigmoid colon and possible volvulus 05/11/17 patient s/p colonoscopy and decompression with rectal tube; several areas of twisting or narrowing, suggestive of volvulus; no evidence of mucosal ischemia, antibiotics can be stopped as no evidence of inflammation and patient can have diet advanced and laxative regimen recent KUB 05/13/17: dilatation of the sigmoid which measures 11.7 cm was larger than previous on earlier KUB after rectal tube was placed Gastroenterology and general surgery saw patient on 05/13/17 and no acute procedures at this time -Gastroenterology: describes current features as part of chronic megarectum/ megacolon and that previous acute presentation earlier may have been due to impaction or possibly from volvulus; discontinue rectal tube, discontinue Relistor, discontinue iron , continue low residue diet, bowel regimen as outpatient should be senna QID, miralax 2-3 x daily, scheduled enemas 2-3 x a week to prevent impaction. -General surgery service does not recommend surgery now and recommends colorectal surgery referral as outpatient -Patient should discuss with primary care doctor on minimizing narcotic medications to prevent future abdominal problems Chronic destructive change at the L2-L3 disc space level: chronic discitis/ osteomyelitis as per radiology read. patient does report history of spinal surgery in the past but resulting complications led to the hardware removed and subsequently with relative left leg immobility -admission blood cultures no growth to date, patient without evidence for sepsis ESRD on dialysis M/W/F through left arm fistula -continue calcium acetate -received dialysis on 05/11/17, and 05/14/17 in the hospital -hold iron as per GI to prevent constipation Electrolytes has been having hypokalemia from dialysis and diarrhea patient has received potassium supplements Urination: patient reports urination despite being on dialysis, denies recent urinary symptoms Morbid Obesity with BMI 43, on statin Patient denies history of diabetes but this has been listed as problem list on outpatient records - is not on medications for diabetes, HbA1c 5.8, serum glucose normal in the hospital Continue Coumadin and low dose carvedilol for history of atrial fibrillation Follow up appointment: 05/21/17 10:[address] Jevon Swanson [address] [place] [address] (Patient can discuss with primary care doctor whether need for referral for colo -rectal surgeon and need for enemas) [facility] appointment line [phone] have been informed about the need for anticoagulation clinic for INR checks Patient should get regularly scheduled dialysis every Sunday, Sunday, and Sunday Vital Signs: Date Time Temp Pulse Resp B/P (MAP) Pulse Ox O2 Delivery O2 Flow Rate FiO2 05/14/17 15:08 36.8 79 18 122/85 (97) 94 Room Air 05/14/17 13:15 37.1 86 135/91 (106) 05/14/17 12:30 91 132/72 05/14/17 12:15 82 129/82 05/14/17 12:00 88 144/82 05/14/17 11:45 89 125/69 05/14/17 11:15 79 138/62 05/14/17 10:45 81 133/80 05/14/17 10:30 86 133/85 05/14/17 10:15 85 126/64 05/14/17 10:00 75 122/79 05/14/17 09:45 95 114/67 05/14/17 09:30 84 128/77 05/14/17 09:15 81 125/64 05/14/17 08:58 87 148/86 05/14/17 08:50 37.1 87 128/74 (92) 05/14/17 08:34 94 Room Air 05/14/17 08:04 36.8 88 20 120/81 (94) 94 Room Air 05/14/17 07:20 91 Room Air 05/13/17 23:35 Room Air 05/13/17 23:31 36.3 82 16 116/78 (91) 91 Room Air 05/13/17 15:51 36.7 76 19 110/68 (82) 94 Room Air Lab Results: Results Past 24 Hours Test 05/14/17 05:47 Range/Units Prothrombin Time 29.9 9.0-12.0 SECONDS Prothromb Time International Ratio 2.9 0.9-1.1 Potassium Level 3.2 3.5-5.1 mmol/L Microbiology Results 05/13/17 C.difficile Toxin B Gene (PCR) - Final, Complete No C. difficile toxin B gene detected 05/13/17 WBC Smear - Final, Resulted 05/13/17 Shiga Toxin Test - Preliminary, Resulted No E. Coli shiga toxin 1 or shiga tox... 05/13/17 Stool Culture - Preliminary, Resulted NO SALMONELLA ISOLATED TO DATE,...
[2017-05-14] MEDS: WARFARIN SOD 10 MG TAB PO SCH (15:47)
[2017-05-14] MEDS ORDERED: MRLP17 PO (15:50)
[2017-05-14] MEDS ORDERED: SENN-61 PO (15:50)
--- NOTE | 2017-05-14 15:52 | Discharge Instructions ---
Discharge Instructions Date of Service May 14, 2017. Admission Reason for Admission: Abd Distension,Diarrhea Discharge Discharge Diagnosis / Problem: left sided abdominal pain, colon dilitation ( megacolon), ESRD on dialysis Discharge Goals Goal(s): Decrease discomfort, Improve function Activity Recommendations Activity Limitations: per Instructions/Follow-up section Shower/Bathe: no limitations . Instructions / Follow-Up Instructions / Follow-Up Hospital Course and Discharge instructions Admitted for abdominal pain, diarrhea, and found to have dilated sigmoid colon and possible volvulus 05/11/17 patient s/p colonoscopy and decompression with rectal tube; several areas of twisting or narrowing, suggestive of volvulus; no evidence of mucosal ischemia, antibiotics can be stopped as no evidence of inflammation and patient can have diet advanced and laxative regimen recent KUB 05/13/17: dilatation of the sigmoid which measures 11.7 cm was larger than previous on earlier KUB after rectal tube was placed Gastroenterology and general surgery saw patient on 05/13/17 and no acute procedures at this time -Gastroenterology: describes current features as part of chronic megarectum/ megacolon and that previous acute presentation earlier may have been due to impaction or possibly from volvulus; discontinue rectal tube, discontinue Relistor, discontinue iron , continue low residue diet, bowel regimen as outpatient should be senna QID, miralax 2-3 x daily, scheduled enemas 2-3 x a week to prevent impaction. -General surgery service does not recommend surgery now and recommends colorectal surgery referral as outpatient -Patient should discuss with primary care doctor on minimizing narcotic medications to prevent future abdominal problems Chronic destructive change at the L2-L3 disc space level: chronic discitis/ osteomyelitis as per radiology read. patient does report history of spinal surgery in the past but resulting complications led to the hardware removed and subsequently with relative left leg immobility -admission blood cultures no growth to date, patient without evidence for sepsis ESRD on dialysis M/W/F through left arm fistula -continue calcium acetate -received dialysis on 05/11/17, and 05/14/17 in the hospital -hold iron as per GI to prevent constipation Electrolytes has been having hypokalemia from dialysis and diarrhea patient has received potassium supplements Urination: patient reports urination despite being on dialysis, denies recent urinary symptoms Morbid Obesity with BMI 43, on statin Patient denies history of diabetes but this has been listed as problem list on outpatient records - is not on medications for diabetes, HbA1c 5.8, serum glucose normal in the hospital Continue Coumadin and low dose carvedilol for history of atrial fibrillation Follow up appointment: 05/21/17 10:[address] Jevon Swanson [address] [place] [address] (Patient can discuss with primary care doctor whether need for referral for colo -rectal surgeon and need for enemas) [facility] appointment line [phone] have been informed about the need for anticoagulation clinic for INR checks Patient should get regularly scheduled dialysis every Sunday, Sunday, and Sunday Current Hospital Diet Patient's current hospital diet: Low Fiber Diet, Renal Diet Discharge Diet Recommended Diet: N/A (low fiber, renal diet) Procedures Procedures Performed: DECOMPRESSION Pending Studies Studies pending at discharge: no Laboratory Results 05/11/17 08:57 Red Blood Count 4.17, Mean Corpuscular Volume 89.7, Mean Corpuscular Hemoglobin 29.7, Mean Corpuscular Hemoglobin Concent 33.2, Mean Platelet Volume 9.1, Neutrophils (%) (Auto) 68.7, Lymphocytes (%) (Auto) 16.6, Monocytes (%) (Auto) 10.9, Eosinophils (%) (Auto) 3.4, Basophils (%) (Auto) 0.2, Neutrophils # (Auto ) 3.27, Lymphocytes # (Auto) 0.79, Monocytes # (Auto) 0.52, Eosinophils # (Auto ) 0.16, Basophils # (Auto) 0.01 05/13/17 06:02 05/14/17 05:47 Test 05/10/17 05:20 05/10/17 05:28 05/11/17 08:57 05/12/17 07:45 Activated Partial Thromboplast Time 43.6 SECONDS (21.0-31.0) Partial Thromboplastin Ratio 1.7 Estimated Average Glucose 120 mg/dl Hemoglobin A1c 5.8 % (4.5-5.6) Direct Bilirubin 0.1 mg/dl (0-0.2) Lipase 250 U/L (73-393) Bedside Hemoglobin 14.3 g/dl (14.0-18.0) Bedside Hematocrit 42 % (42-52) Bedside Sodium 138 mEq/L (135-144) Bedside Potassium 2.6 mEq/L (3.3-5.0) Bedside Chloride 95 mEq/L (101-112) Bedside Total CO2 29 mEq/l (24-31) Bedside Blood Urea Nitrogen 43 mg/dl (7-18) Bedside Creatinine 4.1 mg/dl (0.6-1.3) Bedside Glucose (other) 112 mg/dl (70-99) Bedside Ionized Calcium (Karen) 1.15 mmol/l (1.12-1.32) White Blood Count 4.76 K/uL (4.8-10.8) Red Blood Count 4.17 M/uL (4.7-6.1) Hemoglobin 12.4 g/dL (14.0-18.0) Hematocrit 37.4 % (42-52) Mean Corpuscular Volume 89.7 fL (80-100) Mean Corpuscular Hemoglobin 29.7 pg (25-34) Mean Corpuscular Hemoglobin Concent 33.2 g/dl (32-36) Platelet Count 153 K/uL (130-400) Mean Platelet Volume 9.1 fL (7.4-10.4) Neutrophils (%) (Auto) 68.7 % Lymphocytes (%) (Auto) 16.6 % Monocytes (%) (Auto) 10.9 % Eosinophils (%) (Auto) 3.4 % Basophils (%) (Auto) 0.2 % Neutrophils # (Auto) 3.27 K/uL (1.4-6.5) Lymphocytes # (Auto) 0.79 K/uL (1.2-3.4) Monocytes # (Auto) 0.52 K/uL (0.11-0.59) Eosinophils # (Auto) 0.16 K/uL (0-0.5) Basophils # (Auto) 0.01 K/uL (0-0.2) RDW Standard Deviation 51.0 fL (36.4-46.3) RDW Coefficient of Variation 15.4 % (11.5-14.5) Immature Granulocyte % (Auto) 0.2 % Immature Granulocyte # (Auto) 0.01 K/uL (0.00-0.02) Hepatitis B Surface Antigen NEG (NEG) Hepatitis B Surface Antibody NEG Magnesium Level 2.3 mg/dl (1.8-2.4) Test 05/13/17 06:02 05/14/17 05:47 Anion Gap 9.0 mmol/L (3-11) Est Creatinine Clear Calc Drug Dose 22.1 ml/min Estimated GFR () 13.2 Estimated GFR (Non- 11.4 BUN/Creatinine Ratio 10.5 (10-20) Calcium Level 8.0 mg/dl (8.5-10.1) Total Bilirubin 0.5 mg/dl (0.2-1) Aspartate Amino Transf (AST/SGOT) 12 U/L (15-37) Alanine Aminotransferase (ALT/SGPT) 13 U/L (12-78) Alkaline Phosphatase 69 U/L (45-117) Total Protein 6.4 gm/dl (6.4-8.2) Albumin 2.8 gm/dl (3.4-5.0) Globulin 3.6 gm/dl (2.5-4.0) Albumin/Globulin Ratio 0.8 (0.9-2) Prothrombin Time 29.9 SECONDS (9.0-12.0) Prothromb Time International Ratio 2.9 (0.9-1.1) Date/Time Source Procedure Growth Status 05/10/17 09:45 Blood Blood Culture - Preliminary NO GROWTH TO DATE. Resulted 05/10/17 19:15 Nasal MRSA DNA Surveillance Screen - Final Specimen Negative for MRSA by DNA Probe Complete 05/13/17 21:55 Stool C.difficile Toxin B Gene (PCR) - Final No C. difficile toxin B gene detected Complete Hemoglobin A1c Test 05/10/17 05:20 Range/Units Estimated Average Glucose 120 mg/dl Hemoglobin A1c 5.8 H 4.5-5.6 % Medical Emergencies . Who to Call and When: Medical Emergencies: If at any time you feel your situation is an emergency, please call 911 immediately. . Non-Emergent Contact Non-Emergency issues call your: Primary Care Provider Call Non-Emergent contact if: you have any medication questions . . "Provider Documentation" section prepared by Stiven Mo. .
--- NOTE | 2017-05-14 19:52 | Discharge Summary ---
Discharge Summary Date of Service May 14, 2017. Discharge Summary Admission Date: May 10, 2017 at 09:22 Discharge Date: May 14, 2017 Discharge Disposition: Personal care Principal Diagnosis: left sided abdominal pain, colon dilated (megacolon), ESRD on dialysis, hypokalemia, history of atrial fibrillation and is on Coumadin Medication Reconciliation New Medications: Polyethylene (Miralax) 17 Gm Pow 17 GM PO BID for 30 Days, #60 PKT Senna (Senokot) 8.6 Mg Tab 8.6 MG PO QID for 30 Days, #120 TAB Continued Medications: Acetaminophen Tab (Tylenol) 325 Mg Tab 650 MG PO Q4H PRN for Pain or Fever, TAB MAX APAP/24HRS = 3GM Calcium Acetate (Phoslo 667 Mg) 667 Mg Cap 2 CAPSULES PO WM, CAP Carvedilol (Coreg) 3.125 Mg Tab 0.5 TAB PO BID 4XWEEKLY, TAB TAKE 1/2 TABLET TWICE EVERY SUNDAY/SUNDAY/SUNDAY/SUNDAY. Carvedilol (Coreg) 3.125 Mg Tab 0.5 TAB PO DAILY 3XWEEKLY, TAB TAKE 1/2 TABLET DAILY EVERY SUNDAY/SUNDAY/SUNDAY. Folic Acid (Folic Acid) 1 Mg Tab 1 MG PO QAM Gabapentin (Gabapentin) 100 Mg Cap 200 MG PO BID Lidocaine-Prilocaine (Lidocaine/Prilocaine) 1 Cre Cre 1 APPLN TOP UD LIBERAL AMOUNT APPLIED 1 HOUR PRIOR TO DIALYSIS,TOPICALLY OVER DIALYSIS ACCESS. ONCE EVERY SUNDAY/SUNDAY/SUNDAY. Magnesium Oxide (Mag-Ox) 400 Mg Tab 400 MG PO QAM, TAB Menthol-Zinc Oxide (Calmoseptine) 1 Oin Oin 1 APPLN TD TID Pantoprazole (Protonix) 40 Mg Tab 40 MG PO BID Ranitidine (Zantac) 150 Mg Tab 150 MG PO QPM Simvastatin (Zocor) 20 Mg Tab 20 MG PO QPM, TAB Skin Protectants, Misc. (Hydrocerin) 1 Cre Cre 1 APPLN TD DAILY Warfarin Sod (Coumadin) 7.5 Mg Tab 7.5 MG PO DAILY TAKE WITH 2.5MG EVERY SUNDAY/SUNDAY/SUNDAY = 10MG 3 X WEEKLY. Warfarin Sod (Coumadin) 2.5 Mg Tab 2.5 MG PO 3XWK TAKE WITH 7.5MG EVERY SUNDAY/SUNDAY/SUNDAY = 10MG 3X WEEKLY [Antacid With Simethi] () Unknown Strength Unknown Dose PO UD for GI Upset Discontinued Medications: Acetaminophen (Tylenol) 325 Mg Tab 650 MG PO DAILY MAX APAP/24HRS = 3GMS Clindamycin Hcl (Cleocin) 300 Mg Cap 300 MG PO DAILY Ferrous Sulfate (Kp Ferrous Sulfate) 325 Mg Tab 325 MG PO DAILY Levofloxacin (Levaquin) 250 Mg Tab 250 MG PO Q2D Oxycodone Hcl (Oxycodone Hcl) 15 Mg Tab 15 MG PO QAM Oxycodone Ir (Roxicodone Ir) 5 Mg Tab 5 MG PO 3XWK, TAB DAILY EVERY SUNDAY/SUNDAY/SUNDAY AFTER RETURNING FROM DIALYSIS. Admission Information HPI (per Admitting provider): This is a 66 year old Male who resides in [facility] on dialysis M/W/F, history of atrial fibrillation on coumadin, history of back surgery with subsequent complications and left leg immobility, ambulates with wheelchair, morbid obesity, who reports bloating x 3 nights and chronic diarrhea. Patient denies recent antibiotic use. Denies vomiting or fever. Patient makes urine and denies urinary symptoms. Reports that he is not really passing gas but is make bowel movements as diarrhea. Also having left sided abdominal tenderness with the bloating sensation x [address] abdomen results concerning for abdominal bowel distention (dilated colon vs diverticulitis). Patient was ordered Ciprofloxacin and Metronidazole in the ED and GI consult pending with admission to hospitalist medicine service. Physical Exam (per Admitting): General Appearance: no apparent distress Head: normocephalic, atraumatic Eyes: normal inspection, EOMI, sclerae normal ENT: normal ENT inspection, hearing grossly normal, pharynx normal Neck: supple, thyroid normal, no JVD, trachea midline Respiratory/Chest: chest non-tender, lungs clear, normal breath sounds, no respiratory distress, no accessory muscle use Cardiovascular: regular rate, rhythm, no edema, no JVD, no murmur Abdomen/GI: normal bowel sounds, + pertinent finding (truncal obesity, distended, abdominal tenderness left of epigastrum, bowel sounds audible) Back: normal inspection, no muscle spasm Extremities/Musculoskelatal: normal inspection, no calf tenderness, no pedal edema, non-tender, + pertinent finding (patient cannot move left leg) Neurologic/Psych: alert, oriented x 3 (patient cannot move left leg), + pertinent finding Skin: normal color, warm/dry, no rash Hospital Course Hospital Course and Discharge instructions Admitted for abdominal pain, diarrhea, and found to have dilated sigmoid colon and possible volvulus 05/11/17 patient s/p colonoscopy and decompression with rectal tube; several areas of twisting or narrowing, suggestive of volvulus; no evidence of mucosal ischemia, antibiotics can be stopped as no evidence of inflammation and patient can have diet advanced and laxative regimen recent KUB 05/13/17: dilatation of the sigmoid which measures 11.7 cm was larger than previous on earlier KUB after rectal tube was placed Gastroenterology and general surgery saw patient on 05/13/17 and no acute procedures at this time -Gastroenterology: describes current features as part of chronic megarectum/ megacolon and that previous acute presentation earlier may have been due to impaction or possibly from volvulus; discontinue rectal tube, discontinue Relistor, discontinue iron , continue low residue diet, bowel regimen as outpatient should be senna QID, miralax 2-3 x daily, scheduled enemas 2-3 x a week to prevent impaction. -General surgery service does not recommend surgery now and recommends colorectal surgery referral as outpatient -Patient should discuss with primary care doctor on minimizing narcotic medications to prevent future abdominal problems Chronic destructive change at the L2-L3 disc space level: chronic discitis/ osteomyelitis as per radiology read. patient does report history of spinal surgery in the past but resulting complications led to the hardware removed and subsequently with relative left leg immobility -admission blood cultures no growth to date, patient without evidence for sepsis ESRD on dialysis M/W/F through left arm fistula -continue calcium acetate -received dialysis on 05/11/17, and 05/14/17 in the hospital -hold iron as per GI to prevent constipation Electrolytes has been having hypokalemia from dialysis and diarrhea patient has received potassium supplements Urination: patient reports urination despite being on dialysis, denies recent urinary symptoms Morbid Obesity with BMI 43, on statin Patient denies history of diabetes but this has been listed as problem list on outpatient records - is not on medications for diabetes, HbA1c 5.8, serum glucose normal in the hospital Continue Coumadin and low dose carvedilol for history of atrial fibrillation Follow up appointment: 05/21/17 10:[address] Jevon Swanson [address] [place] [address] (Patient can discuss with primary care doctor whether need for referral for colo -rectal surgeon and need for enemas) [facility] appointment line [phone] have been informed about the need for anticoagulation clinic for INR checks Patient should get regularly scheduled dialysis every Sunday, Sunday, and Sunday Total time spent on discharge = 60 minutes This includes examination of the patient, discharge planning, medication reconciliation, and communication with other providers. Discharge Instructions see above
== END 2017-05-14 17:51 | disposition home or self-care (01) | DRG 393 ==
LOC: EDBD 05:06 → C.EDA 05:06 → ENRESERV 08:45 → C.MSN 09:22
PROVIDERS: ADMIT Hospitalist; ATTEND Hospitalist
PROC: 0D7E8DZ Dilation of Large Intestine with Intraluminal Device, Via Natural or Artificial Opening Endoscopic (ICD-10-PCS; principal; 2017-05-11 09:19)
DX: K59.39 Other megacolon (principal); N18.6 End stage renal disease; M86.68 Other chronic osteomyelitis, other site; Z68.41 Body mass index [BMI] 40.0-44.9, adult; I12.0 Hypertensive chronic kidney disease with stage 5 chronic kidney disease or end stage renal disease; M51.36 Other intervertebral disc degeneration, lumbar region; D64.9 Anemia, unspecified; E87.6 Hypokalemia; I48.91 Unspecified atrial fibrillation; E66.9 Obesity, unspecified; M46.46 Discitis, unspecified, lumbar region; Z99.2 Dependence on renal dialysis; K59.09 Other constipation; Z79.01 Long term (current) use of anticoagulants; Z83.3 Family history of diabetes mellitus; Z88.1 Allergy status to other antibiotic agents

== ENCOUNTER → 2017-05-30 | Outpatient (CLI) | payer OTHER ==
[~2017-05-30] MED LIST changes: -ACET-1311 PO; +ACET-1693 PO; -BISA10SU38 PR; +CALC667C4 PO; +CARV3.122 PO; -CLIN300C2 PO; +CMD25 PO; +CMD75 PO; -CRG3125 PO; +LIDO1CRE16 TOP; -LIDO5DIS10 TOP; +MENTOIN TD; +MRLP17 PO; -NUTR-1048 PO; -OXY/15 PO; -OXYC1TAB3 PO; -PROTEIN POWDER PO; +SENN-61 PO; +SKIN120C TD; -WARF10TA PO; +[UNRECOGNIZED DRUG - OTHER] PO
[2017-05-30 10:23] LABS: INR 2.3 (0.9-1.1)
== END | disposition home or self-care (01) ==
LOC: C.LABSPEC 09:52
PROVIDERS: ATTEND Nurse Practitioner Adult Health
DX: I48.91 Unspecified atrial fibrillation (principal)

== ENCOUNTER → 2017-06-21 | Outpatient (CLI) | payer OTHER ==
[2017-06-21 08:21] LABS: INR 2.3 (0.9-1.1)
== END | disposition home or self-care (01) ==
LOC: C.LABSPEC 07:58
PROVIDERS: ATTEND Internal Medicine
DX: I48.91 Unspecified atrial fibrillation (principal)

== ENCOUNTER → 2017-07-11 | Outpatient (CLI) | payer OTHER ==
[2017-07-11 08:57] LABS: INR 2.3 (0.9-1.1)
== END | disposition home or self-care (01) ==
LOC: C.LABSPEC 08:33
PROVIDERS: ATTEND Internal Medicine
DX: I48.91 Unspecified atrial fibrillation (principal)